=== PATIENT | female | born 1950 ===

== ENCOUNTER 2018-04-12 18:40 | Inpatient (IN) | payer MEDICARE, OTHER ==
[2018-04-12 19:15] LABS: BASO % 0.3 % (0.0-2.0); EOS % 0.1 % (0.0-4.0); HEMOGLOBIN 12.8 g/dL (11.0-16.0); LYMPH # 0.8 K/uL (1.0-4.3); MEAN CELL VOLUME 75.5 fL (81.0-99.0); MEAN CORPUSCULAR HEMOGLOBIN 26.6 pg (27.0-31.0); MEAN CORPUSCULAR HGB CONC 35.3 g/dL (33.0-37.0); MEAN PLATELET VOLUME 7.4 fL (7.2-11.7); MONO # 2.3 K/uL (0.0-0.8); MONO % 14.4 % (0.0-10.0); NEUT # 12.6 K/uL (1.8-7.0); NEUT % 80.2 % (50.0-75.0); PLATELET COUNT 293 K/uL (130-400); RBC 4.79 Mil/uL (3.80-5.20); WHITE BLOOD COUNT 15.7 K/uL (4.8-10.8)
--- NOTE | 2018-04-12 19:23 | C.PDOC ---
History Of Present Illness 68yo female, comes to ER for evaluation of left shoulder pain after she fell down the stairs last night and then again this morning. Patient states she lives alone and last night, she fell down 4 steps in her house; states she was able to get up after this fall and went to bed. She then woke up and went to the bathroom, and sat on the floor and was unable to get up. Patient states while attempting to get herself to go downstairs to the main section of her house this morning, she fell on the stairs again and injured her left shoulder. She states after this fall, she was unable to get up. Shewas found on the floor when the neighbors called the police. Patient now complains of pain and swelling to her left shoulder with ecchymosis. She denies any head injury, loss of consciousness, vomiting, and offers no additional complaints. - HPI Time Seen by Provider: 04/12/18 18:47 Chief Complaint (Nursing): Trauma History Per: Patient History/Exam Limitations: no limitations Onset/Duration Of Symptoms: Hrs Location Of Injury: Left: Shoulder Additional History Per: Patient Past Medical History Reviewed: Historical Data, Nursing Documentation, Vital Signs Vital Signs: Last Vital Signs Temp 98.8 F 04/12/18 20:04 Pulse 87 04/12/18 20:04 Resp 20 04/12/18 20:04 BP 113/76 04/12/18 20:04 Pulse Ox 97 04/12/18 21:02 - Medical History PMH: Gall Bladder Disease, HTN Surgical History: No Surg Hx Family History: States: No Known Family Hx - Social History Hx Alcohol Use: No Hx Substance Use: No - Immunization History Hx Tetanus Toxoid Vaccination: No Hx Influenza Vaccination: No Hx Pneumococcal Vaccination: No Review Of Systems Constitutional: Negative for: Fever, Chills Gastrointestinal: Negative for: Vomiting Musculoskeletal: Positive for: Shoulder Pain (left shoulder pain and swelling) Neurological: Negative for: Other (head injury) Physical Exam - Physical Exam Appears: Non-toxic Skin: Warm, Dry Head: Atraumatic, Normacephalic Eye(s): bilateral: Normal Inspection Neck: Supple Chest: Symmetrical Cardiovascular: Rhythm Regular Respiratory: Normal Breath Sounds Extremity: No Normal ROM (+ patient unable to move left arm due to pain), Tenderness (tenderness, swelling and ecchymosis to left shoulder.) Neurological/Psych: Oriented x3, Normal Speech, Normal Cognition, Normal Sensation ED Course And Treatment - Laboratory Results Result Diagrams: 04/12/18 19:10 04/12/18 19:10 Lab Interpretation: Abnormal (WBC 15.7 with left shift, Na 111, Cl 73, BUN 36, K + 3.3, lelvatedLFTs with Bili 3.7) ECG: Interpreted By Me ECG Rhythm: Sinus Rhythm (with LVH), ST/T Changes (with inverted T in III and flat in AVF, mild slurring of ST segments) O2 Sat by Pulse Oximetry: 97 (RA) Pulse Ox Interpretation: Normal - Other Rad Left shoulder X-Ray: Interpreted by Me Interpretation: displacedfracture of humeral head - CT Scan/US CT head Other Rad Studies (CT/US): Read By Radiologist, Radiology Report Reviewed CT/US Interpretation: EXAM: CT Head Without Intravenous Contrast. CLINICAL HISTORY: 68 years old, female; Condition or disease; Headache; Headache not. specified; Patient HX: R/O bleed. TECHNIQUE: Axial computed tomography images of the head/brain without intravenous contrast. All CT scans at this facility use at least one of these dose optimization techniques: automated. exposure control; mA and/or kV adjustment per patient size (includes targeted exams where dose is. matched to clinical indication); or iterative reconstruction. Coronal and sagittal reformatted images. were created and reviewed. COMPARISON : No relevant prior studies available. FINDINGS: Brain: Cerebral and cerebellar atrophy. Small vessel ischemic/degenerative changes. Lacunar infarcts in the right posterior centrum semiovale. No hemorrhage. Ventricles: Unremarkable. No ventriculomegaly. Bones/joints: Unremarkable. No acute fracture. Soft tissues: Unremarkable. Vasculature: Intracranial arterial calcifications. Sinuses: Unremarkable as visualized. No acute sinusitis. Mastoid air cells: Unremarkable as visualized. No mastoid effusion. IMPRESSION : 1. Cerebral and cerebellar atrophy. 2. Small vessel ischemic/degenerative changes. Thank you for allowing us to participate in the care of your patient. Dictated and Authenticated by: Ivan Villarreal MD. 04/12/2018 9:50 PM Eastern Time ([place] & [place]) Progress Note: Labs, UA, CT Head w/o contrast and XR left shoulder ordered. Reevaluation Time: 19:59 Reassessment Condition: Unchanged - Physician Consult Information Time Consulting Physician Contacted: 19:59 Physician Contacted: Ammy Oneal Outcome Of Conversation: Patient to be admitted for severe hyponatremia with fall and resulting humerus fracture. Disposition - Disposition Disposition: HOSPITALIZED Disposition Time: 20:00 Condition: GUARDED - POA Present On Arrival: Falls Or Trauma - Clinical Impression Clinical Impression: Acute hyponatremia, Humerus head fracture - Scribe Statement The provider has reviewed the documentation as recorded by the Sage Maynard Provider Attestation: All medical record entries made by the Sage were at my direction and personally dictated by me. I have reviewed the chart and agree that the record accurately reflects my personal performance of the history, physical exam, medical decision making, and the department course for this patient. I have also personally directed, reviewed, and agree with the discharge instructions and disposition.
[2018-04-12 19:36] LABS: INR 1.2; PROTHROMBIN TIME 12.7 SECONDS (9.7-12.2)
[2018-04-12 19:46] LABS: ALB/GLOB RATIO 1.2 (1.0-2.1); ALBUMIN 4.7 g/dL (3.5-5.0); CALCIUM 9.5 mg/dl (8.6-10.4)
[2018-04-12] MEDS ORDERED: Sodium Chloride 0.9% 1,000 ML IV ONE (19:49)
[2018-04-12 20:21] LABS: BANDS 2 % (0-2); LYMPHOCYTE 10 % (20-40); MONOCYTE 13 % (0-10); NEUTROPHIL 75 % (50-75); PLATELET ESTIMATE NORMAL (NORMAL); TOTAL CELLS COUNTED 100
[2018-04-12] MEDS ORDERED: Sodium Chloride 0.9% 1,000 ML IV SCH ×2 (21:00→21:15)
[2018-04-13] MEDS ORDERED: Sodium Chloride 0.9% 1,000 ML IV SCH (07:45)
--- NOTE | 2018-04-13 08:19 | RAD ---
Date of service: 04/12/2018 PROCEDURE: CHEST RADIOGRAPH, 1 VIEW HISTORY: r/o infiltrate COMPARISON: None available. FINDINGS: LUNGS: The lungs are clear. No focal consolidation. There is linear atelectasis/ scarring in the right mid lung. PLEURA: No pneumothorax or pleural fluid seen. CARDIOVASCULAR: Normal. OSSEOUS STRUCTURES: No significant abnormalities. VISUALIZED UPPER ABDOMEN: Normal. OTHER FINDINGS: None. IMPRESSION: No active pulmonary disease.
--- NOTE | 2018-04-13 08:35 | RAD ---
Date of service: 04/12/2018 PROCEDURE: Radiographs of the Left Shoulder HISTORY: R/O FX /DISLOCATION POST FALL YESTERDAY COMPARISON: No prior. FINDINGS: BONES: Humeral probable surgical neck level fracture with a lateral and inferior displacement relative to to the glenoid fossa and posterior displacement an over riding relative to the proximal humerus. Additional comminuted fracture fragments of the humeral head also suggested. JOINTS: acromioclavicular joints preserved. Humeral head laterally and apparently posterior displaced/dislocated from the glenoid fossa taken surface. Humeral head posterior the inferior to the unopposed full of the proximal humerus. SOFT TISSUES: Regional soft tissue swelling inferred OTHER FINDINGS: None. IMPRESSION: Proximal humeral fracture with dislocation -as detailed above. Consider CT of the left shoulder for fracture fragment mapping and joint -osseous alignment assessment
[2018-04-13 08:40] LABS: BASO % 0.1 % (0.0-2.0); EOS % 0.2 % (0.0-4.0); LYMPH # 1.1 K/uL (1.0-4.3); WHITE BLOOD COUNT 11.9 K/uL (4.8-10.8)
[2018-04-13 08:46] LABS: LYMPH % 9.6 % (20.0-40.0); MEAN CELL VOLUME 75.3 fL (81.0-99.0); MEAN CORPUSCULAR HGB CONC 35.8 g/dL (33.0-37.0); MEAN PLATELET VOLUME 7.9 fL (7.2-11.7); MONO # 1.8 K/uL (0.0-0.8); MONO % 15.4 % (0.0-10.0); NEUT # 8.9 K/uL (1.8-7.0); NEUT % 74.7 % (50.0-75.0); NRBC % 0.1 % (0.0-2.0); PLATELET COUNT 247 K/uL (130-400); RBC 3.63 Mil/uL (3.80-5.20); RED CELL DISTRIBUTION WIDTH 13.1 % (11.5-14.5)
[2018-04-13 08:52] LABS: HEMOGLOBIN 9.8 g/dL (11.0-16.0)
[2018-04-13 08:58] LABS: ALB/GLOB RATIO 1.1 (1.0-2.1); ALBUMIN 3.1 g/dL (3.5-5.0); ALT/SGPT 55 U/L (9-52); AST/SGOT 114 U/L (14-36); BLOOD UREA NITROGEN 25 mg/dL (7-17); CALCIUM 7.9 mg/dl (8.6-10.4); GFR AFRICAN-AMERICAN > 60; GFR NON-AFRICAN AMERICAN > 60
--- NOTE | 2018-04-13 09:02 | CP.PCM.CON ---
History of Present Illness - History of Present Illness History of Present Illness: Orthopedic consultation Dr. Georges 68F complains of left shoulder pain after fall down 4 steps at her residence. She says she was unable to get up after the fall. Denies CP/SOB/dizziness/ numbness/tingling/n/v. She saysshe always has problems with her gallbladder and can not eat fatty foods. She denies pain in other extremities. RHD. Denies dizziness/denies LOC. No prior shoulder injury. Review of Systems - Review of Systems All systems: reviewed and no additional remarkable complaints except - Constitutional Additional comments: no fever/chills - Cardiovascular Cardiovascular: As Per HPI - Respiratory Respiratory: As Per HPI - Musculoskeletal Musculoskeletal: As Per HPI - Integumentary Integumentary: As Per HPI Additional comments: bruising - Neurological Neurological: As Per HPI - Hematologic/Lymphatic Hematologic: absent: As Per HPI, Easy Bleeding, Easy Bruising, Lymphadenopathy, Other Past Patient History - Past Medical History & Family History Past Medical History?: Yes Past Family History: Reviewed and not pertinent - Past Social History Smoking Status: Never Smoked - CARDIAC Hx Cardiac Disorders: Yes Hx Hypertension: Yes - PULMONARY Hx Respiratory Disorders: No - NEUROLOGICAL Hx Neurological Disorder: No - HEENT Hx HEENT Problems: Yes Hx Glaucoma: Yes - RENAL Hx Chronic Kidney Disease: No - ENDOCRINE/METABOLIC Hx Endocrine Disorders: No - HEMATOLOGICAL/ONCOLOGICAL Hx Blood Disorders: No - INTEGUMENTARY Hx Dermatological Problems: No - MUSCULOSKELETAL/RHEUMATOLOGICAL Hx Musculoskeletal Disorders: Yes Hx Falls: Yes Hx Unsteady Gait: Yes - GASTROINTESTINAL Hx Gastrointestinal Disorders: Yes Hx Gall Bladder Disease: Yes - GENITOURINARY/GYNECOLOGICAL Hx Genitourinary Disorders: No - PSYCHIATRIC Hx Psychophysiologic Disorder: No Hx Substance Use: No - SURGICAL HISTORY Hx Surgeries: Yes Other/Comment: Fibroids removed by Dr Cass Arias - ANESTHESIA Hx Anesthesia: Yes Hx Anesthesia Reactions: No Hx Malignant Hyperthermia: No Has any member of the family had a problem w/ anesthesia?: No Meds Allergies/Adverse Reactions: Allergies Allergy/AdvReac Type Severity Reaction Status Date / Time No Known Allergies Allergy Unverified 04/12/18 18:51 - Medications Medications: Current Medications Potassium Chloride 20 meq/ (Sodium Chloride) 1,010 mls @ 100 mls/hr IV .Q10H6M [facility] Last Admin: 04/13/18 00:00 Dose: 100 mls/hr Potassium Chloride 20 meq/ (Sodium Chloride) 1,010 mls @ 100 mls/hr IV .Q10H6M KATHY Sodium Chloride (Sodium Chloride 0.9%) 1,000 mls @ 70 mls/hr IV .[id number] KATHY Last Admin: 04/13/18 08:29 Dose: 70 mls/hr Physical Exam - Constitutional Appears: Well, No Acute Distress - Neck Exam Neck exam: Positive for: Full Rom, Normal Inspection - Respiratory Exam Respiratory Exam: NORMAL BREATHING PATTERN - Cardiovascular Exam Additional comments: +radial pulse LUE - Expanded Upper Extremities Exam Left Upper Arm exam: ecchymosis, swelling, tenderness Elbow exam: full ROM, swelling (non tender, swelling from shoulder) Forearm Wrist exam: full ROM, normal inspection Neuro motor exam: finger 2-5 abduction intact, thumb abduction, thumb IP flexion intact, thumb opposition intact, wrist extension intact Neurosensory exam: median nerve intact, radial nerve intact, ulnar nerve intact Vascular exam: radial pulse - Neurological Exam Neurological exam: Alert, Oriented x3 - Psychiatric Exam Psychiatric exam: Normal Affect, Normal Mood - Skin Skin Exam: Dry, Intact (sig ecchymosis), Warm Results - Vital Signs Recent Vital Signs: Last Vital Signs Temp 97.9 F 04/12/18 23:30 Pulse 76 04/13/18 05:24 Resp 20 04/12/18 23:30 BP 102/65 04/12/18 23:30 Pulse Ox 98 04/12/18 23:30 - Labs Result Diagrams: 04/13/18 08:24 04/13/18 08:24 Labs: Laboratory Results - last 24 hr 04/12/18 04/12/18 04/12/18 19:10 19:10 19:10 WBC 15.7 H RBC 4.79 Hgb 12.8 Hct 36.1 MCV 75.5 L MCH 26.6 L MCHC 35.3 RDW 13.0 Plt Count 293 MPV 7.4 Neut % (Auto) 80.2 H Lymph % (Auto) 5.0 L [place] % (Auto) 14.4 H Eos % (Auto) 0.1 Baso % (Auto) 0.3 Neut # (Auto) 12.6 H Lymph # (Auto) 0.8 L [place] # (Auto) 2.3 H Eos # (Auto) 0.0 Baso # (Auto) 0.0 Neutrophils % (Manual) 75 Band Neutrophils % 2 Lymphocytes % (Manual) 10 L Monocytes % (Manual) 13 H Platelet Estimate Normal PT 12.7 H INR 1.2 Sodium 111 L* Potassium 3.3 L Chloride 73 L Carbon Dioxide 24 Anion Gap 18 BUN 36 H Creatinine 1.1 Est GFR ( Amer) 59 Est GFR (Non-Af Amer) 49 Random Glucose 138 H Serum Osmolality Calcium 9.5 Total Bilirubin 3.7 H AST 221 H ALT 82 H Alkaline Phosphatase 151 H Total Protein 8.5 H Albumin 4.7 Globulin 3.8 Albumin/Globulin Ratio 1.2 04/13/18 04/13/18 04/13/18 08:24 08:24 08:24 WBC 11.9 H RBC 3.63 L Hgb 9.8 L D Hct 27.3 L MCV 75.3 L MCH 27.0 MCHC 35.8 RDW 13.1 Plt Count 247 MPV 7.9 Neut % (Auto) 74.7 Lymph % (Auto) 9.6 L [place] % (Auto) 15.4 H Eos % (Auto) 0.2 Baso % (Auto) 0.1 Neut # (Auto) 8.9 H Lymph # (Auto) 1.1 [place] # (Auto) 1.8 H Eos # (Auto) 0.0 Baso # (Auto) 0.0 Neutrophils % (Manual) Band Neutrophils % Lymphocytes % (Manual) Monocytes % (Manual) Platelet Estimate PT INR Sodium 113 L* Potassium 3.4 L Chloride 85 L Carbon Dioxide 20 L Anion Gap 12 BUN 25 H Creatinine 0.7 Est GFR ( Amer) > 60 Est GFR (Non-Af Amer) > 60 Random Glucose 118 H Serum Osmolality 245 L Calcium 7.9 L Total Bilirubin 2.0 H AST 114 H D ALT 55 H D Alkaline Phosphatase 106 Total Protein 5.9 L Albumin 3.1 L D Globulin 2.7 Albumin/Globulin Ratio 1.1 Assessment & Plan (1) Closed fracture of left proximal humerus Assessment and Plan: neck fragment 100% displaced CT left shoulder sling ice around the clock plan for hemiarthroplasty when medically optimized and swelling improved, will plan for next Tuesday for OR 3pm check vitamin D level d/w Dr. Georges, agrees with above Status: Acute
[2018-04-13 09:36] LABS: BANDS 2 % (0-2); LYMPHOCYTE 6 % (20-40); MONOCYTE 13 % (0-10); NEUTROPHIL 79 % (50-75); TOTAL CELLS COUNTED 100
[2018-04-13 09:37] LABS: HYPOCHROMIC SLIGHT; PLATELET ESTIMATE NORMAL (NORMAL)
[2018-04-13 09:38] LABS: POLYCHROMIC SLIGHT
--- NOTE | 2018-04-13 10:04 | CT ---
Date of service: 04/12/2018 PROCEDURE: CT HEAD WITHOUT CONTRAST. HISTORY: R/O Bleed COMPARISON: None available. TECHNIQUE: Axial computed tomography images were obtained through the head/brain without intravenous contrast. Radiation dose: Total exam DLP = 638.70 mGy-cm. This CT exam was performed using one or more of the following dose reduction techniques: Automated exposure control, adjustment of the mA and/or kV according to patient size, and/or use of iterative reconstruction technique. FINDINGS: HEMORRHAGE: No intracranial hemorrhage. BRAIN: There are mild chronic microangiopathic changes. There is an old infarction in the right parietal subcortical white matter and periatrial white matter. There is no mass, mass effect or abnormal extra-axial fluid collection. VENTRICLES: There is mild age-related global parenchymal volume loss and proportionate enlargement of the ventricles and cortical sulci. CALVARIUM: The skull base and calvarium are normal. PARANASAL SINUSES: Predominantly clear. MASTOID AIR CELLS: Predominantly clear. OTHER FINDINGS: None. IMPRESSION: No acute intracranial abnormality. 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 Mild chronic microangiopathic changes and mild age-related global parenchymal volume loss. A preliminary report was provided by [employer].
--- NOTE | 2018-04-13 10:22 | US ---
Date of service: 04/12/2018 HISTORY: high liver enzymes COMPARISON: None. TECHNIQUE: Grayscale imaging was performed. FINDINGS: LIVER: Measures 12.9 cm. There is diffuse increased echogenicity of the liver parenchyma. No mass. No intrahepatic bile duct dilatation. GALLBLADDER: There are no gallstones, wall thickening or pericholecystic fluid. The sonographic Keating's sign is negative. COMMON BILE DUCT: Measures 8.0 mm. No stones. Mild dilatation. PANCREAS: Unremarkable as visualized. No mass. No ductal dilatation. RIGHT KIDNEY: Measures 9.8cm. Normal echogenicity. No calculus, mass, or hydronephrosis. LEFT KIDNEY: Measures 10.0cm. Normal echogenicity. No mass, or hydronephrosis. There is a 5 mm calcification in the lower pole. There is a 3.8 x 4.1 x 3.8 cm simple cyst in the upper pole and 1.5 x 1.4 x 1.6 cm simple cyst in the interpolar region. SPLEEN: Normal in size and contour. No mass. AORTA: No aneurysmal dilatation. IVC: Unremarkable. OTHER FINDINGS: None. IMPRESSION: Diffuse increased echogenicity in the liver may reflect hepatic steatosis however parenchymal infectious/ inflammatory etiologies cannot be entirely excluded. Clinical and laboratory correlation is advised. No cholelithiasis. Mild dilatation of the common bile duct without evidence for choledocholithiasis. 5 mm calcification in the lower pole of the left kidney which may represent a nonobstructing stone. Simple cysts in the left kidney, the larger in the upper pole measures 4.1 cm.
--- NOTE | 2018-04-13 11:28 | CARD ---
APPROVED REPORT Date of service: 04/12/2018 EKG Measurement Heart [id number] CT [id number] <Conclusion> Normal sinus rhythm Possible Left atrial enlargement Left ventricular hypertrophy with repolarization abnormality Abnormal ECG
[2018-04-13 13:49] LABS: SQUAMOUS EPITHIAL 3 /hpf (0-5); URINE BACTERIA RARE (<OCC); URINE BILIRUBIN NEGATIVE (NEGATIVE); URINE BLOOD NEGATIVE (NEGATIVE); URINE CLARITY Hazy (Clear); URINE COLOR Yellow (YELLOW); URINE GLUCOSE (UA) 2+ mg/dL (Normal); URINE LEUKOCYTE ESTERASE 1+ Leu/uL (Negative); URINE PROTEIN 1+ mg/dL (NEGATIVE)
[2018-04-13 14:13] LABS: OSMOLALITY,URINE 555 mosm/kg (300-1000)
--- NOTE | 2018-04-13 14:15 | CT ---
Date of service: 04/13/2018 PROCEDURE: CT scan of the left shoulder without contrast HISTORY: left proximal humerus fracture COMPARISON: Plain radiographs from 04/12/2018. TECHNIQUE: Contiguous axial images of the left shoulder were obtained. Coronal and sagittal reformats were generated. This CT exam was performed using one or more of the following dose reduction techniques: Automated exposure control, adjustment of the mA and/or kV according to patient size, and/or use of iterative reconstruction technique. FINDINGS: BONES: There is an acute comminuted displaced fracture in the surgical neck of the humerus with posterior, lateral and inferior displacement of the humeral head overriding the proximal metaphysis of the humerus. There is resultant posterior inferior subluxation of the glenohumeral joint. The acromioclavicular joint is normal. There is diffuse bone demineralization. There is diffuse subcutaneous edema in the periarticular soft tissues. There is also intramuscular edema. IMPRESSION: Acute comminuted displaced fracture in the surgical neck of the humerus with posterior, lateral and inferior displacement of the humeral head overriding the proximal metaphysis of the humerus. Posterior inferior subluxation of the glenohumeral joint.
[2018-04-13 14:16] LABS: URIC ACID 4.2 mg/dL (2.2-7.5)
--- NOTE | 2018-04-13 14:54 | CP.PCM.HP ---
History of Present Illness - History of Present Illness History of Present Illness: This is a 68 y/o female hypertensive who was brought to the ER after a fall. Patient claims that she fell down on her L shoulder while going up the stairs at home. She denies any history of dizziness, lightheadedness, palpitations or syncope. She then got up and went upstairs and fell asleep. She woke up in the middle of the night seemingly disoriented and went to the bathroom. She subsequently woke up the next morning on the bathroom floor after apparently spending the rest of the night there. She tried to get up and felt so weak so she crawled out to go down the stairs and rolled down the stairs again. She again reports that she crawled to the downstairs bathroom but was too weak to go to the toilet and urinated while on the floor. She denies any seizure or loss of consciousness. She was found the next day on the floor by a neighbor who called the mason apprentice because they did not see her for 2 days. She was subsequently brought to the ER and found to be dehydrated with severe electrolyte imbalance with serum Na of 111 with fracture at the surgical neck of the L humerus and hence she is now admitted for further management. She was last seen in the office about 6 weeks ago and at that time, she claims that she has been been drinking a lot of water as part of the water therapy that someone advised her to do. She was told to stop doing that and explained possible consequences. She claims that she did stop and has really been asymptomatic until the day of the fall. She denies any abdominal pain, nausea or vomiting and has described herself as feeling normal until the fall. Present on Admission - Present on Admission Any Indicators Present on Admission: No History of DVT/PE: No History of Uncontrolled Diabetes: No Review of Systems - Review of Systems Systems not reviewed;Unavailable: Respiratory Distress - Constitutional Constitutional: Weight Loss, Weakness - EENT Eyes: As Per HPI - Cardiovascular Cardiovascular: As Per HPI - Respiratory Respiratory: Cough - Musculoskeletal Musculoskeletal: Arthralgias, Myalgias Past Patient History - Past Medical History & Family History Past Medical History?: Yes Past Family History: Reviewed and not pertinent - Past Social History Smoking Status: Never Smoked Chewing Tobacco Use: No Cigar Use: No Alcohol: None Drugs: Denies Home Situation {Lives}: Alone - CARDIAC Hx Cardiac Disorders: No Hx Hypertension: Yes - PULMONARY Hx Respiratory Disorders: No - NEUROLOGICAL Hx Neurological Disorder: No - HEENT Hx HEENT Problems: Yes Hx Glaucoma: Yes - RENAL Hx Chronic Kidney Disease: No - ENDOCRINE/METABOLIC Hx Endocrine Disorders: No - HEMATOLOGICAL/ONCOLOGICAL Hx Blood Disorders: No - INTEGUMENTARY Hx Dermatological Problems: No - MUSCULOSKELETAL/RHEUMATOLOGICAL Hx Musculoskeletal Disorders: Yes Hx Arthritis: Yes Hx Falls: Yes Hx Unsteady Gait: Yes - GASTROINTESTINAL Hx Gastrointestinal Disorders: Yes Hx Gall Bladder Disease: Yes - GENITOURINARY/GYNECOLOGICAL Hx Genitourinary Disorders: No - PSYCHIATRIC Hx Psychophysiologic Disorder: No Hx Substance Use: No - SURGICAL HISTORY Hx Surgeries: Yes Other/Comment: Fibroids removed by Dr Cass Arias - ANESTHESIA Hx Anesthesia: Yes Hx Anesthesia Reactions: No Hx Malignant Hyperthermia: No Has any member of the family had a problem w/ anesthesia?: No Meds Allergies/Adverse Reactions: Allergies Allergy/AdvReac Type Severity Reaction Status Date / Time No Known Allergies Allergy Unverified 04/12/18 18:51 Physical Exam - Constitutional Appears: No Acute Distress - Head Exam Head Exam: NORMAL INSPECTION - Eye Exam Eye Exam: EOMI, Normal appearance - ENT Exam ENT Exam: Mucous Membranes Moist, Normal Exam - Neck Exam Neck exam: Positive for: Normal Inspection - Respiratory Exam Respiratory Exam: Clear to Auscultation Bilateral, NORMAL BREATHING PATTERN - Cardiovascular Exam Cardiovascular Exam: REGULAR RHYTHM, +S1, +S2 - GI/Abdominal Exam GI & Abdominal Exam: Normal Bowel Sounds, Soft - Extremities Exam Extremities exam: Positive for: joint swelling, pedal pulses present Additional comments: L shoulder markedly swollen and tender to pressure and movement with large hematoma extending to the upper arm. - Neurological Exam Neurological exam: Alert, Oriented x3 - Psychiatric Exam Psychiatric exam: Normal Affect, Normal Mood - Skin Skin Exam: Dry, Normal Color, Warm Results - Vital Signs Recent Vital Signs: Last Vital Signs Temp 98.3 F 04/13/18 08:59 Pulse 76 04/13/18 08:59 Resp 20 04/13/18 08:59 BP 95/62 L 04/13/18 08:59 Pulse Ox 98 04/13/18 08:59 - Labs Result Diagrams: 04/13/18 08:24 04/13/18 13:57 Labs: Laboratory Results - last 24 hr 04/12/18 04/12/1804/12/18 19:10 19:10 19:10 WBC 15.7 H RBC 4.79 Hgb 12.8 Hct 36.1 MCV 75.5 L MCH 26.6 L MCHC 35.3 RDW 13.0 Plt Count 293 MPV 7.4 Neut % (Auto) 80.2 H Lymph % (Auto) 5.0 L [place] % (Auto) 14.4 H Eos % (Auto) 0.1 Baso % (Auto) 0.3 Neut # (Auto) 12.6 H Lymph # (Auto) 0.8 L [place] # (Auto) 2.3 H Eos # (Auto) 0.0 Baso # (Auto) 0.0 Neutrophils % (Manual) 75 Band Neutrophils % 2 Lymphocytes % (Manual) 10 L Monocytes % (Manual) 13 H Platelet Estimate Normal Polychromasia Hypochromasia (manual) PT 12.7 H INR 1.2 Sodium 111 L* Potassium 3.3 L Chloride 73 L Carbon Dioxide 24 Anion Gap 18 BUN 36 H Creatinine 1.1 Est GFR ( Amer) 59 Est GFR (Non-Af Amer) 49 Random Glucose 138 H Serum Osmolality Uric Acid Calcium 9.5 Total Bilirubin 3.7 H AST 221 H ALT 82 H Alkaline Phosphatase 151 H Total Protein 8.5 H Albumin 4.7 Globulin 3.8 Albumin/Globulin Ratio 1.2 TSH 3rd Generation Cortisol AM Sample Urine Color Urine Clarity Urine pH Ur Specific [place] Urine Protein Urine Glucose (UA) Urine Ketones Urine Blood Urine Nitrate Urine Bilirubin Urine Urobilinogen Ur Leukocyte Esterase Urine WBC (Auto) Urine RBC (Auto) Ur Squamous Epith Cells Urine Bacteria Urine Osmolality Ur Random Sodium 04/13/18 04/13/18 04/13/18 08:24 08:24 08:24 WBC 11.9 H RBC 3.63 L Hgb 9.8 L D Hct 27.3 L MCV 75.3 L MCH 27.0 MCHC 35.8 RDW 13.1 Plt Count 247 MPV 7.9 Neut % (Auto) 74.7 Lymph % (Auto) 9.6 L [place] % (Auto) 15.4 H Eos % (Auto) 0.2 Baso % (Auto) 0.1 Neut # (Auto) 8.9 H Lymph # (Auto) 1.1 [place] # (Auto) 1.8 H Eos # (Auto) 0.0 Baso # (Auto) 0.0 Neutrophils % (Manual) 79 H Band Neutrophils % 2 Lymphocytes % (Manual) 6 L Monocytes % (Manual) 13 H Platelet Estimate Normal Polychromasia Slight Hypochromasia (manual) Slight PT INR Sodium 113 L* Potassium 3.4 L Chloride 85 L Carbon Dioxide 20 L Anion Gap 12 BUN 25 H Creatinine 0.7 Est GFR ( Amer) > 60 Est GFR (Non-Af Amer) > 60 Random Glucose 118 H Serum Osmolality 245 L Uric Acid Calcium 7.9 L Total Bilirubin 2.0 H AST 114 H D ALT 55 H D Alkaline Phosphatase 106 Total Protein 5.9 L Albumin 3.1 L D Globulin 2.7 Albumin/Globulin Ratio 1.1 TSH 3rd Generation Cortisol AM Sample Urine Color Urine Clarity Urine pH Ur Specific [place] Urine Protein Urine Glucose (UA) Urine Ketones Urine Blood Urine Nitrate Urine Bilirubin Urine Urobilinogen Ur Leukocyte Esterase Urine WBC (Auto) Urine RBC (Auto) Ur Squamous Epith Cells Urine Bacteria Urine Osmolality Ur Random Sodium 04/13/18 04/13/18 04/13/18 08:24 08:24 13:36 WBC RBC Hgb Hct MCV MCH MCHC RDW Plt Count MPV Neut % (Auto) Lymph % (Auto) [place] % (Auto) Eos % (Auto) Baso % (Auto) Neut # (Auto) Lymph # (Auto) [place] # (Auto) Eos # (Auto) Baso # (Auto) Neutrophils % (Manual) Band Neutrophils % Lymphocytes % (Manual) Monocytes % (Manual) Platelet Estimate Polychromasia Hypochromasia (manual) PT INR Sodium Potassium Chloride Carbon Dioxide Anion Gap BUN Creatinine Est GFR ( Amer) Est GFR (Non-Af Amer) Random Glucose Serum Osmolality Uric Acid Calcium Total Bilirubin AST ALT Alkaline Phosphatase Total Protein Albumin Globulin Albumin/Globulin Ratio TSH 3rd Generation 1.23 Cortisol AM Sample 21.9 Urine Color Urine Clarity Urine pH Ur Specific [place] Urine Protein Urine Glucose (UA) Urine Ketones Urine Blood Urine Nitrate Urine Bilirubin Urine Urobilinogen Ur Leukocyte Esterase Urine WBC (Auto) Urine RBC (Auto) Ur Squamous Epith Cells Urine Bacteria Urine Osmolality 555 Ur Random Sodium 6 04/13/18 04/13/18 13:36 13:57 WBC RBC Hgb Hct MCV MCH MCHC RDW Plt Count MPV Neut % (Auto) Lymph % (Auto) [place] % (Auto) Eos % (Auto) Baso % (Auto) Neut # (Auto) Lymph # (Auto) [place] # (Auto) Eos # (Auto) Baso # (Auto) Neutrophils % (Manual) Band Neutrophils % Lymphocytes % (Manual) Monocytes % (Manual) Platelet Estimate Polychromasia Hypochromasia (manual) PT INR Sodium Potassium 3.3 L Chloride Carbon Dioxide Anion Gap BUN Creatinine Est GFR ( Amer) Est GFR (Non-Af Amer) Random Glucose Serum Osmolality Uric Acid 4.2 Calcium Total Bilirubin AST ALT Alkaline Phosphatase Total Protein Albumin Globulin Albumin/Globulin Ratio TSH 3rd Generation Cortisol AM Sample Urine Color Yellow Urine Clarity Hazy Urine pH 6.0 Ur Specific [place] 1.017 Urine Protein 1+ H Urine Glucose (UA) 2+ H Urine Ketones Trace Urine Blood Negative Urine Nitrate Negative Urine Bilirubin Negative Urine Urobilinogen 2.0 H Ur Leukocyte Esterase 1+ H Urine WBC (Auto) 30 H Urine RBC (Auto) 1 Ur Squamous Epith Cells 3 Urine Bacteria Rare Urine Osmolality Ur Random Sodium Assessment & Plan (1) Hyponatremia Assessment and Plan: Serum Na 111 on admission. acute vs chronic. Currently on NS infusion and monitoring serum Na levels. R/O SIADH and other causes of SIADH, abnormalities in the lungs or brain. Nephrology consultation requested. Status: Acute (2) Closed fracture of left proximal humerus Assessment and Plan: Orthopedic consultation requested. Tentatively scheduled for surgery on Tuesday. Status: Acute (3) Acute prerenal azotemia Assessment and Plan: Patient has not been able to eat over the past 24-36 hours prior to admission. Currently on NS infusion and diet started Status: Acute (4) Hypertension Assessment and Plan: controlled. Status: Acute Decision To Admit - Pt Status Changed To: Hospital Disposition Of: Inpatient - Admit Certification Admit to Inpatient:: After my assessment, the patient will require hospitalization for at least two midnights. This is because of the severity of symptoms shown, intensity of services needed, and/or the medical risk in this patient being treated as an outpatient. - InPatient: Physician Admission Certification:: After my assessment, the patient will require hospitalization for at least two midnights. This is because of the severity of symptoms shown, intensity of services needed, and/or the medical risk in this patient being treated as an outpatient. - . Bed Request Type: Telemetry Admitting Physician: Ammy Oneal
--- NOTE | 2018-04-13 15:32 | CP.PCM.CON ---
History of Present Illness - History of Present Illness History of Present Illness: pt is seen and examined, full consult is dictated #[id number] 1. hyponatremia sec to hypotonic hypovolemic hyponatremia, doubu siadh 2. hypotension 3. s/p fall with left shoulder injury and fx left humerus 4. hypokalemia agree with ivf ns with 20 meq kcl at 70 ml/hr bmp q 6 hrs check urine lytes, osm, uric acid, tsh, cortisol level, bmp at 6 pm Past Patient History - Past Medical History & Family History Past Medical History?: Yes Past Family History: Reviewed and not pertinent - Past Social History Smoking Status: Never Smoked Chewing Tobacco Use: No Cigar Use: No Alcohol: None Drugs: Denies Home Situation {Lives}: Alone - CARDIAC Hx Cardiac Disorders: No Hx Hypertension: Yes - PULMONARY Hx Respiratory Disorders: No - NEUROLOGICAL Hx Neurological Disorder: No - HEENT Hx HEENT Problems: Yes Hx Glaucoma: Yes - RENAL Hx Chronic Kidney Disease: No - ENDOCRINE/METABOLIC Hx Endocrine Disorders: No - HEMATOLOGICAL/ONCOLOGICAL Hx Blood Disorders: No - INTEGUMENTARY Hx Dermatological Problems: No - MUSCULOSKELETAL/RHEUMATOLOGICAL Hx Musculoskeletal Disorders: Yes Hx Arthritis: Yes Hx Falls: Yes Hx Unsteady Gait: Yes - GASTROINTESTINAL Hx Gastrointestinal Disorders: Yes Hx Gall Bladder Disease: Yes - GENITOURINARY/GYNECOLOGICAL Hx Genitourinary Disorders: No - PSYCHIATRIC Hx Psychophysiologic Disorder: No Hx Substance Use: No - SURGICAL HISTORY Hx Surgeries: Yes Other/Comment: Fibroids removed by Dr Cass Arias - ANESTHESIA Hx Anesthesia: Yes Hx Anesthesia Reactions: No Hx Malignant Hyperthermia: No Has any member of the family had a problem w/ anesthesia?: No Meds Allergies/Adverse Reactions: Allergies Allergy/AdvReac Type Severity Reaction Status Date / Time No Known Allergies Allergy Unverified 04/12/18 18:51 - Medications Medications: Current Medications Home Med (Dorzolamide 2%/Timolol 0.5% [Cosopt 2%-0.5% Opht]) 1 drop AU BID KATHY Potassium Chloride 20 meq/ (Sodium Chloride) 1,010 mls @ 70 mls/hr IV .[id number] KATHY Last Admin: 04/13/18 12:00 Dose: 70 mls/hr Potassium Chloride (K-Dur 20 Meq Er Tab) 40 meq PO ONCE ONE Stop: 04/13/18 16:01 Results - Vital Signs Recent Vital Signs: Last Vital Signs Temp 98.3 F 04/13/18 08:59 Pulse 76 04/13/18 08:59 Resp 20 04/13/18 08:59 BP 95/62 L 04/13/18 08:59 Pulse Ox 98 04/13/18 08:59 - Labs Result Diagrams: 04/13/18 08:24 04/13/18 19:25 Labs: Laboratory Results - last 24 hr 04/12/18 04/12/18 04/12/18 19:10 19:10 19:10 WBC 15.7 H RBC 4.79 Hgb 12.8 Hct 36.1 MCV 75.5 L MCH 26.6 L MCHC 35.3 RDW 13.0 Plt Count 293 MPV 7.4 Neut % (Auto) 80.2 H Lymph % (Auto) 5.0 L [place] % (Auto) 14.4 H Eos % (Auto) 0.1 Baso % (Auto) 0.3 Neut # (Auto) 12.6 H Lymph # (Auto) 0.8 L [place] # (Auto) 2.3 H Eos # (Auto) 0.0 Baso # (Auto) 0.0 Neutrophils % (Manual) 75 Band Neutrophils % 2 Lymphocytes % (Manual) 10 L Monocytes % (Manual) 13 H Platelet Estimate Normal Polychromasia Hypochromasia (manual) PT 12.7 H INR 1.2 Sodium 111 L* Potassium 3.3 L Chloride 73 L Carbon Dioxide 24 Anion Gap 18 BUN 36 H Creatinine 1.1 Est GFR ( Amer) 59 Est GFR (Non-Af Amer) 49 Random Glucose 138 H Serum Osmolality Uric Acid Calcium 9.5 Total Bilirubin 3.7 H AST 221 H ALT 82 H Alkaline Phosphatase 151 H Total Protein 8.5 H Albumin 4.7 Globulin 3.8 Albumin/Globulin Ratio 1.2 TSH 3rd Generation Cortisol AM Sample Urine Color Urine Clarity Urine pH Ur Specific [place] Urine Protein Urine Glucose (UA) Urine Ketones Urine Blood Urine Nitrate Urine Bilirubin Urine Urobilinogen Ur Leukocyte Esterase Urine WBC (Auto) Urine RBC (Auto) Ur Squamous Epith Cells Urine Bacteria Urine Osmolality Ur Random Sodium Ur Random Potassium Stool Occult Blood 04/13/18 04/13/18 04/13/18 08:24 08:24 08:24 WBC 11.9 H RBC 3.63 L Hgb 9.8 L D Hct 27.3 L MCV 75.3 L MCH 27.0 MCHC 35.8 RDW 13.1 Plt Count 247 MPV 7.9 Neut % (Auto) 74.7 Lymph % (Auto) 9.6 L [place] % (Auto) 15.4 H Eos % (Auto) 0.2 Baso % (Auto) 0.1 Neut # (Auto) 8.9 H Lymph # (Auto) 1.1 [place] # (Auto) 1.8 H Eos # (Auto) 0.0 Baso # (Auto) 0.0 Neutrophils % (Manual) 79 H Band Neutrophils % 2 Lymphocytes % (Manual) 6 L Monocytes % (Manual) 13 H Platelet Estimate Normal Polychromasia Slight Hypochromasia (manual) Slight PT INR Sodium 113 L* Potassium 3.4 L Chloride 85 L Carbon Dioxide 20 L Anion Gap 12 BUN 25 H Creatinine 0.7 Est GFR ( Amer) > 60 Est GFR (Non-Af Amer) > 60 Random Glucose 118 H Serum Osmolality 245 L Uric Acid Calcium 7.9 L Total Bilirubin 2.0 H AST 114 H D ALT 55 H D Alkaline Phosphatase 106 Total Protein 5.9 L Albumin 3.1 L D Globulin 2.7 Albumin/Globulin Ratio 1.1 TSH 3rd Generation Cortisol AM Sample Urine Color Urine Clarity Urine pH Ur Specific [place] Urine Protein Urine Glucose (UA) Urine Ketones Urine Blood Urine Nitrate Urine Bilirubin Urine Urobilinogen Ur Leukocyte Esterase Urine WBC (Auto) Urine RBC (Auto) Ur Squamous Epith Cells Urine Bacteria Urine Osmolality Ur Random Sodium Ur Random Potassium Stool Occult Blood 04/13/18 04/13/18 04/13/18 08:24 08:24 13:30 WBC RBC Hgb Hct MCV MCH MCHC RDW Plt Count MPV Neut % (Auto) Lymph % (Auto) [place] % (Auto) Eos % (Auto) Baso % (Auto) Neut # (Auto) Lymph # (Auto) [place] # (Auto) Eos # (Auto) Baso # (Auto) Neutrophils % (Manual) Band Neutrophils % Lymphocytes % (Manual) Monocytes % (Manual) Platelet Estimate Polychromasia Hypochromasia (manual) PT INR Sodium Potassium Chloride Carbon Dioxide Anion Gap BUN Creatinine Est GFR ( Amer) Est GFR (Non-Af Amer) Random Glucose Serum Osmolality Uric Acid Calcium Total Bilirubin AST ALT Alkaline Phosphatase Total Protein Albumin Globulin Albumin/Globulin Ratio TSH 3rd Generation 1.23 Cortisol AM Sample 21.9 Urine Color Urine Clarity Urine pH Ur Specific [place] Urine Protein Urine Glucose (UA) Urine Ketones Urine Blood Urine Nitrate Urine Bilirubin Urine Urobilinogen Ur Leukocyte Esterase Urine WBC (Auto) Urine RBC (Auto) Ur Squamous Epith Cells Urine Bacteria Urine Osmolality Ur Random Sodium Ur Random Potassium 36.3 Stool Occult Blood 04/13/18 04/13/18 04/13/18 13:36 13:36 13:57 WBC RBC Hgb Hct MCV MCH MCHC RDW Plt Count MPV Neut % (Auto) Lymph % (Auto) [place] % (Auto) Eos % (Auto) Baso % (Auto) Neut # (Auto) Lymph # (Auto) [place] # (Auto) Eos # (Auto) Baso # (Auto) Neutrophils % (Manual) Band Neutrophils % Lymphocytes % (Manual) Monocytes % (Manual) Platelet Estimate Polychromasia Hypochromasia (manual) PT INR Sodium Potassium 3.3 L Chloride Carbon Dioxide Anion Gap BUN Creatinine Est GFR ( Amer) Est GFR (Non-Af Amer) Random Glucose Serum Osmolality Uric Acid 4.2 Calcium Total Bilirubin AST ALT Alkaline Phosphatase Total Protein Albumin Globulin Albumin/Globulin Ratio TSH 3rd Generation Cortisol AM Sample Urine Color Yellow Urine Clarity Hazy Urine pH 6.0 Ur Specific [place] 1.017 Urine Protein 1+ H Urine Glucose (UA) 2+ H Urine Ketones Trace Urine Blood Negative Urine Nitrate Negative Urine Bilirubin Negative Urine Urobilinogen 2.0 H Ur Leukocyte Esterase 1+ H Urine WBC (Auto) 30 H Urine RBC (Auto) 1 Ur Squamous Epith Cells 3 Urine Bacteria Rare Urine Osmolality 555 Ur Random Sodium Cancelled Ur Random Potassium Cancelled Stool Occult Blood 04/13/18 14:34 WBC RBC Hgb Hct MCV MCH MCHC RDW Plt Count MPV Neut % (Auto) Lymph % (Auto) [place] % (Auto) Eos % (Auto) Baso % (Auto) Neut # (Auto) Lymph # (Auto) [place] # (Auto) Eos # (Auto) Baso # (Auto) Neutrophils % (Manual) Band Neutrophils % Lymphocytes % (Manual) Monocytes % (Manual) Platelet Estimate Polychromasia Hypochromasia (manual) PT INR Sodium Potassium Chloride Carbon Dioxide Anion Gap BUN Creatinine Est GFR ( Amer) Est GFR (Non-Af Amer) Random Glucose Serum Osmolality Uric Acid Calcium Total Bilirubin AST ALT Alkaline Phosphatase Total Protein Albumin Globulin Albumin/Globulin Ratio TSH 3rd Generation Cortisol AM Sample Urine Color Urine Clarity Urine pH Ur Specific [place] Urine Protein Urine Glucose (UA) Urine Ketones Urine Blood Urine Nitrate Urine Bilirubin Urine Urobilinogen Ur Leukocyte Esterase Urine WBC (Auto) Urine RBC (Auto) Ur Squamous Epith Cells Urine Bacteria Urine Osmolality Ur Random Sodium Ur Random Potassium Stool Occult Blood Negative
[2018-04-13] MEDS ORDERED: Potassium Chloride 20 mEq ER Tab PO ONE (16:00)
[2018-04-13] MEDS: Naproxen 275 mg Tab PO PRN (17:55)
[2018-04-13] MEDS ORDERED: TIMOLOL OU SCH (18:00)
[2018-04-13] MEDS ORDERED: Dorzolamide 2% Opht Sol 10ml OU SCH (18:00)
[2018-04-13] MEDS ORDERED: DORZOLAMIDE OU SCH (18:00)
[2018-04-13 19:51] LABS: BLOOD UREA NITROGEN 19 mg/dL (7-17); CALCIUM 7.7 mg/dl (8.6-10.4); GFR AFRICAN-AMERICAN > 60; GFR NON-AFRICAN AMERICAN > 60
[2018-04-13] MEDS: Promethazine DM 6.25 mg-15 mg/5 ml Syrup PO PRN (21:31)
[2018-04-13 21:33] LABS: URINE BILIRUBIN NEGATIVE (NEGATIVE); URINE BLOOD NEGATIVE (NEGATIVE); URINE CLARITY Clear (Clear); URINE COLOR Yellow (YELLOW); URINE GLUCOSE (UA) 1+ mg/dL (Normal); URINE HYALINE CAST 0-2 /lpf (0-2); URINE LEUKOCYTE ESTERASE NEG Leu/uL (Negative); URINE PROTEIN NEGATIVE (NEGATIVE)
--- NOTE | 2018-04-13 23:42 | CON ---
DATE: 04/13/2018 INPATIENT CONSULTATION REASON FOR CONSULTATION: Left proximal humerus fracture. HISTORY OF PRESENT ILLNESS: This is a 68-year-old female who sustained a fall approximately 3 days ago with complaints of left shoulder pain. The patient was subsequently admitted for hyponatremia, and I was consulted for evaluation of the left shoulder. The patient today complains of left shoulder pain. She denies any numbness or tingling in the hand. She denies any other injuries. PHYSICAL EXAMINATION: GENERAL: She is awake and alert but slightly lethargic secondary to pain medication. VITAL SIGNS: Otherwise, her vital signs are stable. EXTREMITIES: Evaluation of her left upper extremity shows significant amount of swelling and ecchymosis involving the left proximal humerus, pain with passive range of motion of the shoulder. Grossly, she is neurovascularly intact with palpable distal pulses. No humeral shaft or elbow deformities appreciated. She is able to move all her other extremities without any pain. DIAGNOSTIC DATA: X-rays: A CAT scan of the left shoulder consistent with a comminuted 100% displaced surgical neck with comminution of the greater tuberosity and also appears to be humeral head splitting fracture as well. IMPRESSION: Left proximal humerus fracture. PLAN: At this point, recommendation will be for a left shoulder hemiarthroplasty once the patient is medically optimized. For right now, I recommend a left upper extremity sling, ice, and we will plan on doing the surgery in the next 3-4 days. Sergei Georges MD [facility] # [id number]
[2018-04-14 07:34] LABS: HEMOGLOBIN 9.2 g/dL (11.0-16.0); MEAN CORPUSCULAR HEMOGLOBIN 27.1 pg (27.0-31.0); MEAN CORPUSCULAR HGB CONC 34.8 g/dL (33.0-37.0); MEAN PLATELET VOLUME 7.5 fL (7.2-11.7); RBC 3.41 Mil/uL (3.80-5.20); RED CELL DISTRIBUTION WIDTH 13.5 % (11.5-14.5); WHITE BLOOD COUNT 10.6 K/uL (4.8-10.8)
[2018-04-14 07:42] LABS: MEAN CELL VOLUME 77.8 fL (81.0-99.0)
[2018-04-14 08:38] LABS: ALB/GLOB RATIO 1.1 (1.0-2.1); ALBUMIN 3.1 g/dL (3.5-5.0); ALT/SGPT 64 U/L (9-52); AST/SGOT 77 U/L (14-36); BLOOD UREA NITROGEN 13 mg/dL (7-17); CALCIUM 8.2 mg/dl (8.6-10.4); GFR AFRICAN-AMERICAN > 60; GFR NON-AFRICAN AMERICAN > 60
[2018-04-14] MEDS: Promethazine DM 6.25 mg-15 mg/5 ml Syrup PO PRN ×2 (10:16→17:44)
--- NOTE | 2018-04-14 17:42 | CP.PCM.PN ---
Subjective - Date & Time of Evaluation Date of Evaluation: 04/14/18 Time of Evaluation: 17:41 - Subjective Subjective: pt is seen and examined, follow up consult is dictated #[id number] serum na is improving, c/w ivf ns at 70 ml/hr Objective - Vital Signs/Intake and Output Vital Signs (last 24 hours): Temp Pulse Resp BP Pulse Ox 98.2 F 81 20 138/77 98 04/14/18 16:00 04/14/18 16:00 04/14/18 16:00 04/14/18 16:00 04/14/18 16:00 Intake and Output: 04/14/18 04/14/18 06:59 18:59 Intake Total 860 920 Output Total 700 Balance 160 920 - Medications Medications: Current Medications Potassium Chloride 20 meq/ (Sodium Chloride) 1,010 mls @ 70 mls/hr IV .[id number] KATHY Last Admin: 04/14/18 02:23 Dose: 70 mls/hr Naproxen (Anaprox) 275 mg PO BIDPC PRN PRN Reason: Pain, Mild (1-3) Last Admin: 04/13/18 17:55 Dose: 275 mg Promethazine HCl/Dextromethorphan (Phenergan Dm Syrup) 5 ml PO Q8H PRN PRN Reason: Cough Last Admin: 04/14/18 10:16 Dose: 5 ml Timolol Maleate (Timoptic 0.5% Ophth Soln) 1 drop OU BID KATHY Last Admin: 04/14/18 09:20 Dose: 1 drop - Labs Labs: 04/14/18 07:21 04/14/18 07:21 PT 12.7 SECONDS (9.7-12.2) H 04/12/18 19:10 INR 1.2 04/12/18 19:10
[2018-04-14] MEDS: Naproxen 275 mg Tab PO PRN (17:44)
--- NOTE | 2018-04-14 17:56 | CP.PCM.PN ---
Subjective - Date & Time of Evaluation Date of Evaluation: 04/14/18 Time of Evaluation: 05:30 - Subjective Subjective: Patient complains of shoulder pain and weaness no chest pain, no shortness of breath, eating well now was OOB to go to bathroom with assistance. Serum Na up to 127 today on NS infusion K-back to normal Echocardiogram reviewed- normal LV size and nl EF, +diastolic dysfunction VS stable Objective - Vital Signs/Intake and Output Vital Signs (last 24 hours): Temp Pulse Resp BP Pulse Ox 98.2 F 81 20 138/77 98 04/14/18 16:00 04/14/18 16:00 04/14/18 16:00 04/14/18 16:00 04/14/18 16:00 Intake and Output: 04/14/18 04/14/18 06:59 18:59 Intake Total 860 920 Output Total 700 Balance 160 920 - Medications Medications: Current Medications Sodium Chloride (Sodium Chloride 0.9%) 1,000 mls @ 70 mls/hr IV .[id number] [facility] Naproxen (Anaprox) 275 mg PO BIDPC PRN PRN Reason: Pain, Mild (1-3) Last Admin: 04/14/18 17:44 Dose: 275 mg Promethazine HCl/Dextromethorphan (Phenergan Dm Syrup) 5 ml PO Q8H PRN PRN Reason: Cough Last Admin: 04/14/18 17:44 Dose: 5 ml Timolol Maleate (Timoptic 0.5% Ophth Soln) 1 drop OU BID KATHY Last Admin: 04/14/18 17:44 Dose: 1 drop - Labs Labs: 04/14/18 07:21 04/14/18 07:21 PT 12.7 SECONDS (9.7-12.2) H 04/12/18 19:10 INR 1.2 04/12/18 19:10 - Constitutional Appears: No Acute Distress - Eye Exam Eye Exam: Normal appearance - ENT Exam ENT Exam: Normal Exam - Respiratory Exam Respiratory Exam: Clear to Ausculation Bilateral, NORMAL BREATHING PATTERN - Cardiovascular Exam Cardiovascular Exam: REGULAR RHYTHM, +S1, +S2 - GI/Abdominal Exam GI & Abdominal Exam: Soft, Normal Bowel Sounds - Extremities Exam Extremities Exam: Normal Inspection Additional comments: L shoulder markedlly swollen on arm sling - Neurological Exam Neurological Exam: Alert, Awake, Oriented x3 - Psychiatric Exam Psychiatric exam: Normal Affect, Normal Mood Assessment and Plan (1) Hyponatremia Assessment & Plan: Na- 127. much improved on NS infusion Status: Acute (2) Closed fracture of left proximal humerus Assessment & Plan: on arm sling and ice compress. Needs Naprosyn once anna while For surgery on Tuesday Status: Acute (3) Acute prerenal azotemia Assessment & Plan: back to normal Status: Resolved (4) Hypertension Assessment & Plan: under controll so far Echocardiogram reviewed- alexandro LV size and EF, Status: Chronic
[2018-04-14] MEDS: Sodium Chloride 0.9% 1,000 ML IV SCH (18:47)
--- NOTE | 2018-04-14 18:59 | CARD ---
APPROVED REPORT Date of service: 04/14/2018 EXAM: Two-dimensional and M-mode echocardiogram with Doppler and color Doppler. Other Information Quality : GoodRhythm : INDICATION Pre-Op RISK FACTORS Hypertension 2D DIMENSIONS IVSd1.4 (0.7-1.1cm)Aortic Root (2D)2.9 (2.0-3.7cm) LVDd3.0 (3.9-5.9cm)LVOT Diameter1.6 (1.8-2.4cm) PWd1.4 (0.7-1.1cm)LVDs2.3 (2.5-4.0cm) FS (%) 24.9 %LVEF (%)50.9 (>50%) Mitral Valve MV E Pesucjgf42.1cm/sMV A Mmpaftfb07.7cm/sE/A ratio0.9 TDI E/Lateral E'0.0E/Medial E'0.0 Pulmonary Valve PV Peak Jpcthmhy405.7cm/sPV Peak Grad.7mmHg Tricuspid Valve TR Peak Daroibhe843xk/sTR Peak Gr.[id number] <Conclusion> normal size la,lv & ra rv. moderate degree of concnetric lvh with lvef of 60-65%. normal lv diastolic funciton. normal aortic,mitral,tv & pv. trace mr,tr with mildly elevated pulmonary systolic pressures of 40 mm of hg. nomral size aortic root. no pericardial effusion. atrial septum is aneurysmal.
[2018-04-15 08:09] LABS: HEMOGLOBIN 10.1 g/dL (11.0-16.0); MEAN CORPUSCULAR HGB CONC 34.2 g/dL (33.0-37.0); RBC 3.75 Mil/uL (3.80-5.20); RED CELL DISTRIBUTION WIDTH 13.9 % (11.5-14.5); WHITE BLOOD COUNT 11.6 K/uL (4.8-10.8)
[2018-04-15 08:43] LABS: IRON 54 ug/dL (37-170)
[2018-04-15 08:45] LABS: BLOOD UREA NITROGEN 14 mg/dL (7-17); CALCIUM 8.4 mg/dl (8.6-10.4); GFR AFRICAN-AMERICAN > 60; GFR NON-AFRICAN AMERICAN > 60
[2018-04-15 08:55] LABS: % IRON SATURATION 19 (20-55); TOTAL IRON BINDING CAPACITY 287 ug/dL (250-450)
[2018-04-15] MEDS: Sodium Chloride 0.9% 1,000 ML IV SCH ×2 (09:00→21:35)
[2018-04-15] MEDS: Multiple Vitamins Tab PO SCH (10:32)
[2018-04-15] MEDS: Promethazine DM 6.25 mg-15 mg/5 ml Syrup PO PRN ×2 (10:33→18:33)
[2018-04-15] MEDS: Naproxen 275 mg Tab PO PRN ×2 (10:34→18:28)
--- NOTE | 2018-04-15 14:13 | CP.PCM.PN ---
Subjective - Date & Time of Evaluation Date of Evaluation: 04/15/18 Time of Evaluation: 14:13 - Subjective Subjective: pt is seen and examined, follow up consult is dictated #[id number] c/w ivf ns at 70 ml/hr consider to add losartan 50 mg qd Objective - Vital Signs/Intake and Output Vital Signs (last 24 hours): Temp Pulse Resp BP Pulse Ox 97.6 F 71 20 168/87 H 97 04/15/18 07:00 04/15/18 07:00 04/15/18 07:00 04/15/18 07:00 04/15/18 07:00 Intake and Output: 04/15/18 04/15/18 06:59 18:59 Intake Total 820 Balance 820 - Medications Medications: Current Medications Sodium Chloride (Sodium Chloride 0.9%) 1,000 mls @ 70 mls/hr IV .[id number] [facility] Last Admin: 04/15/18 09:00 Dose: 70 mls/hr Multivitamins (Hexavitamin) 1 tab PO DAILY [facility] Last Admin: 04/15/18 10:32 Dose: 1 tab Naproxen (Anaprox) 275 mg PO BIDPC PRN PRN Reason: Pain, Mild (1-3) Last Admin: 04/15/18 10:34 Dose: 275 mg Promethazine HCl/Dextromethorphan (Phenergan Dm Syrup) 5 ml PO Q8H PRN PRN Reason: Cough Last Admin: 04/15/18 10:33 Dose: 5 ml Timolol Maleate (Timoptic 0.5% Ophth Soln) 1 drop OU BID [facility] Last Admin: 04/15/18 10:33 Dose: 1 drop - Labs Labs: 04/15/18 07:53 04/15/18 07:53 PT 12.7 SECONDS (9.7-12.2) H 04/12/18 19:10 INR 1.2 04/12/18 19:10
--- NOTE | 2018-04-15 20:43 | PN ---
DATE: 04/15/2018 FOLLOWUP RENAL CONSULTATION LOCATION: The patient is located in room 566, bed B. REQUESTED BY: Ammy Patino MD REASON FOR FOLLOWUP: Hyponatremia, and for further evaluation. SUBJECTIVE: Mrs. Guido is a 68-year-old elderly [place] female with a history of longstanding hypertension, gallbladder disease, on antihypertensive medication, losartan and hydrochlorothiazide, who was admitted after she sustained a fall and injury to the left shoulder and pain and swelling and found to have severe hyponatremia. Serum sodium 111, with abnormal LFTs, and increased BUN and creatinine ratio more than 20:1 BUN and creatinine ratio and also found to have a fracture of the left humerus, and also hypokalemia, started on IV fluids, initially normal saline with 20 mEq KCl at 7 mL/hour and subsequently changed to normal saline. The patient is out of bed to chair. Denies any chest pain or palpitation. Denies any fever or cough. No abdominal pain. No nausea, vomiting, or diarrhea. The patient has complaints of swelling of the left shoulder and pain slightly. The patient is out of bed to chair. PHYSICAL EXAMINATION: VITAL SIGNS: As follows: As of 04/15/2018 at 7 o'clock, blood pressure 160/87, pulse 71, respirations 20, temperature 97.6, saturation 97% on room air. Height 4 feet 11 inches, weight is 105 pounds. GENERAL: Mrs. Guido is a 68-year-old elderly female, thin built, not in distress. HEENT: Pupils normal and reactive to light and accommodation. Conjunctivae pink. Sclerae anicteric. Tongue is moist. Trachea is midline. LUNGS: Symmetric on both sides. Bilateral breath sounds present. Clear to auscultation. CVS: [place] at the fifth intercostal space, midclavicular line. S1, S2 audible. No murmur, rub, or gallop. ABDOMEN: Normal in appearance, soft, tympanic. No guarding. No rigidity. No hepatosplenomegaly. AMMUNITION ASSEMBLY II LABORER: The patient is alert, awake, and oriented x3. Nonfocal neuro examination. Cranial nerves II through XII grossly intact. Sensory and motor system within normal limits. EXTREMITIES: No cyanosis, no clubbing, no edema. In the lower extremities, the patient has swelling of the left shoulder and pain. CURRENT MEDICATIONS: Include as follows: Naproxen 275 mg p.o. b.i.d., multivitamin one tablet daily, Phenergan DM syrup 5 mL p.o. every 8 hours, IV fluids with normal saline at 7 mL/hour, Timoptic eye drops one drop OU b.i.d. LABORATORY DATA: Include as follows: As of 04/15/2018, WBC 11.6, hemoglobin 10.1, hematocrit is 29.7, platelets 331. Sodium 129, potassium 3.8, chloride 96, CO2 24, BUN 14, creatinine 0.5, glucose is 88, calcium 8.4, and iron 54, TIBC 287, iron saturation is 19, and ferritin level is 115. On admission, her BUN was 36, and creatinine was 1.1. ASSESSMENT AND PLAN: In summary, Mrs. Guido is a 68-year-old female with hypertension, status post fall x2 in the house with pain and swelling of the left shoulder, found to have a fracture of the humerus, and low sodium and increased BUN and creatinine. 1. Hyponatremia, most likely secondary to thiazide diuretic-induced, hypothyroidism, hyponatremia. 2. Prerenal azotemia secondary to mild intravascular depletion. 3. Acute renal failure secondary to prerenal azotemia. 4. Fracture of the left humerus. PLAN: Continue analgesics as per Dr. Patino and serum sodium is improving nicely. Continue normal saline at 70 mL/hour and consider to add Cozaar 50 mg p.o. daily and titrate as needed or calcium channel blockers with Norvasc 2.525 mg as needed. Renal function improved, which is normal at this time, creatinine 0.5. We will follow up with you. Thank you for allowing me to participate in your patient's care. Pauline Larson MD
[2018-04-16] MEDS: Sodium Chloride 0.9% 1,000 ML IV SCH ×3 (00:27→17:28)
[2018-04-16] MEDS: Multiple Vitamins Tab PO SCH (09:24)
[2018-04-16 14:17] LABS: BLOOD UREA NITROGEN 8 mg/dL (7-17); GFR AFRICAN-AMERICAN > 60; GFR NON-AFRICAN AMERICAN > 60
[2018-04-16] MEDS: Promethazine DM 6.25 mg-15 mg/5 ml Syrup PO PRN (17:24)
[2018-04-16] MEDS: Naproxen 275 mg Tab PO PRN (17:24)
--- NOTE | 2018-04-16 18:58 | CP.PCM.PN ---
Subjective - Date & Time of Evaluation Date of Evaluation: 04/16/18 Time of Evaluation: 18:58 - Subjective Subjective: pt is seen and examined, follow up consult is dictated #[id number] Objective - Vital Signs/Intake and Output Vital Signs (last 24 hours): Temp Pulse Resp BP Pulse Ox 97.9 F 82 20 170/85 H 98 04/16/18 15:00 04/16/18 16:06 04/16/18 15:00 04/16/18 16:35 04/16/18 15:00 Intake and Output: 04/16/18 04/16/18 06:59 18:59 Intake Total 1360 1999 Balance 1360 1999 - Medications Medications: Current Medications Sodium Chloride (Sodium Chloride 0.9%) 1,000 mls @ 70 mls/hr IV .[id number] [facility] Last Admin: 04/16/18 17:28 Dose: 70 mls/hr Losartan Potassium (Cozaar) 50 mg PO DAILY [facility] Last Admin: 04/16/18 09:24 Dose: 50 mg Multivitamins (Hexavitamin) 1 tab PO DAILY [facility] Last Admin: 04/16/18 09:24 Dose: 1 tab Naproxen (Anaprox) 275 mg PO BIDPC PRN PRN Reason: Pain, Mild (1-3) Last Admin: 04/16/18 17:24 Dose: 275 mg Promethazine HCl/Dextromethorphan (Phenergan Dm Syrup) 5 ml PO Q8H PRN PRN Reason: Cough Last Admin: 04/15/18 18:33 Dose: 5 ml Timolol Maleate (Timoptic 0.5% [facility]) 1 drop OU BID [facility] Last Admin: 04/16/18 17:24 Dose: 1 drop - Labs Labs: 04/15/18 07:53 04/16/18 13:50 PT 12.7 SECONDS (9.7-12.2) H 04/12/18 19:10 INR 1.2 04/12/18 19:10
--- NOTE | 2018-04-16 20:40 | CP.PCM.PN ---
Subjective - Date & Time of Evaluation Date of Evaluation: 04/16/18 Time of Evaluation: 20:39 - Subjective Subjective: Pt seen and examined at bedside. Knows that she is supposed to get surgery for her L shoulder. Objective - Vital Signs/Intake and Output Vital Signs (last 24 hours): Temp Pulse Resp BP Pulse Ox 97.9 F 82 20 148/82 98 04/16/18 15:00 04/16/18 16:06 04/16/18 15:00 04/16/18 19:55 04/16/18 15:00 Intake and Output: 04/16/18 04/17/18 18:59 06:59 Intake Total 1999 Balance 1999 - Medications Medications: Current Medications Losartan Potassium (Cozaar) 50 mg PO DAILY [facility] Last Admin: 04/16/18 09:24 Dose: 50 mg Multivitamins (Hexavitamin) 1 tab PO DAILY [facility] Last Admin: 04/16/18 09:24 Dose: 1 tab Naproxen (Anaprox) 275 mg PO BIDPC PRN PRN Reason: Pain, Mild (1-3) Last Admin: 04/16/18 17:24 Dose: 275 mg Promethazine HCl/Dextromethorphan (Phenergan Dm Syrup) 5 ml PO Q8H PRN PRN Reason: Cough Last Admin: 04/16/18 17:24 Dose: 5 ml Timolol Maleate (Timoptic 0.5% Oph Soln) 1 drop OU BID [facility] Last Admin: 04/16/18 17:24 Dose: 1 drop - Labs Labs: 04/15/18 07:53 04/16/18 13:50 PT 12.7 SECONDS (9.7-12.2) H 04/12/18 19:10 INR 1.2 04/12/18 19:10 Assessment and Plan (1) Closed fracture of left proximal humerus Status: Acute (2) Hypertension Status: Chronic (3) Hyponatremia Status: Acute (4) Osteoporosis Status: Acute
--- NOTE | 2018-04-17 03:37 | PN ---
DATE: 04/16/2018 FOLLOWUP RENAL CONSULTATION LOCATION: The patient is located in room 566, bed B. REQUESTED BY: Ammy Patino MD. REASON FOR FOLLOWUP: Hyponatremia and status post fall. HISTORY OF PRESENT ILLNESS: Mrs. Guido is a 68-year-old elderly [place] female with a past medical history significant for hypertension, gallbladder disease, who was admitted after she had a fall in the house and dizziness and sustained injury to the left shoulder, found to have a swelling of the left shoulder and fracture of the left humerus. The patient was also found to have severe hyponatremia with a serum sodium of 111, and also increased BUN and creatinine. The patient was on the floor for unknown period. The patient is feeling much better, not in distress, still complains of slight pain in the left shoulder, increase with movement. The patient is out of bed to chair. Complaints of need to go to the bathroom more frequently because of IV fluids. The patient denies any chest pain or palpitation. Denies any fever or cough. No abdominal pain. No nausea, vomiting, diarrhea. PHYSICAL EXAMINATION: VITAL SIGNS: As follows: Blood pressure 170/85, pulse 82, respirations 20, temperature 97.9, saturation 98%. Height 4 feet 11 inches, weight is 105 pounds. GENERAL: Mrs. Guido is a 68-year-old elderly female, thin-built, not in distress. HEENT: Pupils normal and reactive to light and accommodation. Conjunctiva pink. Sclerae anicteric. Tongue is moist. Trachea is midline. LUNGS: Symmetric on both sides. Bilateral breath sounds present. Clear to auscultation. CVS: [place] at the fifth intercostal space, midclavicular line. S1, S2 audible. No murmur or gallop. ABDOMEN: Normal in appearance. Soft, tympanic. No guarding. No rigidity. No hepatosplenomegaly. PREDICTIVE MAINTENANCE SPECIALIST: The patient is alert, awake, and oriented x3. Nonfocal neuro examination. Cranial nerves II through XII grossly intact. Sensory and motor system is within normal limits. EXTREMITIES: No cyanosis, no clubbing, no edema. The patient has a swelling of the left shoulder with ice pack. MEDICATIONS: Her current medications include as follows: Naproxen 275 mg p.o. b.i.d. p.r.n., losartan 50 mg p.o. daily, multivitamin 1 tablet daily, Phenergan syrup 5 mL every 8 hours p.r.n., Timoptic eyedrops b.i.d., amlodipine 5 mg p.o. x1 dose this afternoon only. LABORATORY DATA: Include as follows: As of 04/16/2018, sodium 129, potassium is 4, chloride 91, CO2 of 28, BUN 8, creatinine 0.5, glucose 159, calcium 9. As of 04/15/2018, B12 is more than 1000, vitamin D total is 34. Stool for occult blood is negative. Urine culture as of 04/13/2018 is negative, no growth. IMPRESSION: In summary, Mrs. Guido is a 68-year-old elderly very pleasant [place] female with hypertension, gallbladder disease, status post fall with dizziness and injury to the left shoulder with a fracture of the left humerus and low sodium. 1. Hyponatremia, most likely secondary to thiazide diuretic-induced, and also dehydration. 2. Prerenal azotemia, acute renal failure. Renal function improved with hydration and serum sodium also improved to 129. No significant improvement in the last 24 hours. We will discontinue IV fluids, and continue to monitor BMP in a.m. Cannot rule out syndrome of inappropriate antidiuretic hormone secretion at this time due to pain from the left fracture of the left humerus. We will continue to monitor. 3. Hypertension. Agree one dose Norvasc and continue losartan and add Norvasc 2.5 mg or 5 mg daily. Hold for systolic blood pressure less than 130. Repeat BMP in a.m. We will follow with you. Thank you for allowing me to participate in your patient's care. Pauline Larson MD
[2018-04-17 07:38] LABS: BLOOD UREA NITROGEN 12 mg/dL (7-17); CALCIUM 8.8 mg/dl (8.6-10.4); GFR AFRICAN-AMERICAN > 60; GFR NON-AFRICAN AMERICAN > 60
--- NOTE | 2018-04-17 09:10 | CON ---
DATE: 04/13/2018 RENAL CONSULTATION LOCATION: The patient is located in room 566. REQUESTED BY: Ammy Patino MD REASON FOR RENAL CONSULTATION: Hyponatremia, prerenal azotemia, for further evaluation. HISTORY OF PRESENT ILLNESS: The patient is a 68-year-old elderly [place] female with a past medical history significant for hypertension and history of gallbladder disease, who was admitted with chief complaint of left shoulder pain after she fell down the stairs the night before admission on 04/12/2018, and as per the patient, she went to bed and in the middle of the night, she woke up and she went to the bathroom and she could not get up from the floor. She slept on the floor for an unknown period, and then she woke up and she tried to come down from the upstairs slowly, and she tripped again. She fell down. Then, she rolled down about 4 to 5 steps as per the patient, and the neighbors found the patient on the floor and called the police, and subsequently, the patient was brought to the emergency room with the complaints of pain and swelling of the left shoulder with ecchymosis. The patient denies any headache. The patient does complain of dizziness and loss of consciousness. Denies any vomiting. Denies any dysuria or frequency. The patient does complain of dizziness prior to the admission. PAST MEDICAL HISTORY: Significant for gallbladder disease, questionable, for more than 10 years, and hypertension for about 10 years. PAST SURGICAL HISTORY: Denies any surgeries. ALLERGIES: NO KNOWN DRUG ALLERGIES. SOCIAL HISTORY: Denies any smoking, alcohol, or drugs. The patient is a and her in 2014. No children. She lives alone. FAMILY HISTORY: Not significant. CURRENT MEDICATIONS: Include as follows: Naproxen 275 mg p.o. b.i.d. p.r.n., Phenergan DM syrup 5 mL p.o. at bedtime, IV fluids normal saline with 20 mEq KCl at 70 mL per hour, Timoptic eye drops. HOME MEDICATIONS: Losartan with hydrochlorothiazide and Timoptic eye drops. REVIEW OF SYSTEMS: Significant for status post fall x2, fracture of the left humerus and swelling and significant for dizziness. All other review of systems are reviewed and/ or negative. PHYSICAL EXAMINATION: VITAL SIGNS: On admission, as of 04/12/2018 at 1847 hours; blood pressure 120/70, pulse 91, respirations 16, temperature 98.8, saturation 97%. Her current vital signs this afternoon; blood pressure 104/67, pulse 75, respirations 18, temperature 98.1, saturation 100%. Height 4 feet and 11 inches, and weight is 105 pounds. GENERAL: The patient is a 68-year-old elderly, very thin-built [place] female, not in acute distress. HEENT: Pupils are normal and reactive to light and accommodation. Conjunctivae pink. Sclerae anicteric. Tongue is moist and trachea is midline. LUNGS: Symmetric on both sides. Bilateral breath sounds present. No crackles. CVS: [place] at the fifth intercostal space and midclavicular line. S1 and S2 audible. No murmur or gallop. ABDOMEN: Normal in appearance. Soft. Tympanic. No guarding. No rigidity. No hepatosplenomegaly. RAILROAD SWITCHMAN: The patient is alert, awake, oriented x3. Nonfocal on examination. Cranial nerves II through XII grossly intact. Sensory and motor system is within normal limits. EXTREMITIES: No cyanosis. No clubbing. No edema. The patent is not able to move the left shoulder due to the fracture, and also swelling is present, and cold pack is applied to the left shoulder area. LABORATORY DATA: Include as follows: As of 04/11/2018, WBC 15.7, hemoglobin 12.8, hematocrit is 36.1, platelets 293. Neutrophil 75, bands 2, lymph 10, monos 13. PT 12.7 and INR is 1.2. As of 04/11/2018, sodium 111, potassium 3.3, chloride 73, CO2 of 24, BUN 36, creatinine 1.1, glucose is 138, calcium 9.5, total bilirubin 3.7, AST 221, ALT 82, alkaline phosphatase is 151, total protein 8.5, albumin is 4.7. Urinalysis, yellow clear, pH of 6, specific gravity 1.017, protein negative, glucose 1+, ketones negative, blood negative, nitrites negative, bilirubin negative, urobilinogen 4, leukocyte esterase negative, wbc 8, rbc 1, and hyaline cast 0 to 2. OTHER LABORATORY DATA: As of 04/13/2018, WBC 11.9 this morning, hemoglobin 9.8, hematocrit is 27.3, MCV is 75.3, and platelets 247. Sodium 113, potassium 3.4, chloride 85, CO2 of 20, anion gap is 11, BUN 25, creatinine 0.7, glucose 118, serum osmolality 245, serum uric acid level is 4.2, calcium is 7.9. Total bilirubin 2, AST 114, ALT 55, alkaline phosphatase is 106. Total protein 5.9, albumin is 3.1. TSH is 1.23, and serum cholesterol is 21.9. Urinalysis, yellow, hazy, pH 6, specific gravity 1.017, protein 1+, glucose 2+, ketones trace, blood negative, nitrites negative, bilirubin negative, urobilinogen 2, leukocyte esterase 1+, wbc 30, rbc 1, and bacteria 3. Urine osmolality is 555. OTHER REPORTS: X-ray of the shoulder as of 04/12/2018, impression, proximal humeral fracture with dislocation. Consider CT of the left shoulder for fracture fragment mapping and joint osseus alignment assessment. 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 Chest x-ray, as of 04/12/2018, no active pulmonary disease. Ultrasound of the abdomen as of 04/12/2018, impression: Diffuse increased echogenicity in the liver, may reflect hepatic steatosis, however, parenchymal infectious or inflammatory etiologies cannot be entirely excluded. No cholelithiasis. Mild dilatation of the CBD without evidence of choledocholithiasis. A 5 mm calcification in the lower pole of the left kidney, which may represent a nonobstructing stone. Simple cyst in the left kidney and larger in the upper pole, measures about 4.1 cm. Right kidney measures 9.8 cm, normal echogenicity, no calculus, mass, or adenopathy. Left kidney measures 10 cm, normal echogenicity, no mass or adenopathy. There is 5 mm calcification in the lower pole. There is a 3.8 x 4.1 x 3.8 cm simple cyst in the upper pole and 1.5 x 1.4 x 1.6 simple cyst in the interpole region. CT of the upper extremity, as of 04/13/2018, impression: Acute comminuted displaced fracture in the surgical neck of the humerus with posterior, lateral, and inferior displacement of the humeral head, overriding the proximal metaphysis of the humerus. A posterior, inferior subluxation of the glenohumeral joint. ASSESSMENT AND PLAN: In summary, the patient is a 68-year-old elderly female with a history of hypertension, was admitted with status post fall at home from the stairs and lying on the floor for unknown period in the nighttime, and the patient was found to have swelling and pain in the left shoulder. X-ray consistent with fracture of the left humerus, and increased BUN and creatinine, and also hypokalemia and hyponatremia. Started on IV fluids, normal saline with 20 mEq KCl. 1. Hyponatremia, most likely secondary to intravascular depletion, secondary to hypotonic hypovolemic hyponatremia secondary to diuretics. Cannot rule out syndrome of inappropriate antidiuretic hormone less likely. 2. Status post fall. 3. Fracture of the left humerus secondary to fall at home. 4. Hypokalemia. 5. Prerenal azotemia. 6. Abnormal liver function tests, most likely secondary to hypoperfusion and liver function tests are improving slowly with hydration also. PLAN: Continue IV fluids. Normal saline with 50 mEq KCl as started by Dr. Ammy Patino. Agree with gentle IV hydration. Goal is to raise the serum sodium 6 mEq to 8 mEq per day, and continue to monitor BMP this evening and also in a.m. Follow up with Orthopedic Surgery for surgery, and continue analgesics as needed. Avoid hydrochlorothiazide. We will follow with you. Thank you for allowing me to participate in your patient's care. We requested this morning urine lytes, osmolality, serum cortisol, TSH, and serum uric acid to rule out SIADH. All the workup consistent with prerenal and intravascular depletion. Pauline Larson MD
--- NOTE | 2018-04-17 09:12 | PN ---
DATE: 04/14/2018 FOLLOWUP RENAL CONSULTATION LOCATION: The patient is located in room 566, bed B. REQUESTED BY: Ammy Patino MD REASON FOR FOLLOWUP: Hyponatremia. SUBJECTIVE: Mrs. Guido is a 68-year-old elderly female with a past medical history significant for hypertension and gallbladder disease who was admitted after she had a fall in the house, and pain and swelling of the left shoulder, unable to ambulate. The patient's neighbor called police, and subsequently, the patient was brought to the hospital and found to have severe hyponatremia and hypokalemia. Started on IV fluids normal saline with 20 mEq KCl at 70 mL/hour. Serum sodium is gradually improving. The patient is feeling much better, tolerating regular diet. Denies any headache or dizziness. Denies any chest pain or palpitation. Denies any fever or cough. No abdominal pain. No nausea, vomiting or diarrhea. The patient does complain of some swelling and pain of the left shoulder. PHYSICAL EXAMINATION: VITAL SIGNS: As follows: Blood pressure 138/77, pulse 81, respirations 20, temperature 98.2, saturation 98%. Height 4 feet 11 inches. Weight is 105 pounds. GENERAL: Mrs. Guido is a 68-year-old elderly female, moderately built, moderately nourished, not in distress. HEENT: Pupils are normal and reactive to light and accommodation. Conjunctivae are pink. Sclerae are anicteric. Tongue is moist. Trachea is midline. LUNGS: Symmetric on both sides. Bilateral breath sounds present. Clear to auscultation. CVS: [place] at the fifth intercostal space, midclavicular line. S1, S2 audible. No murmur or gallop. ABDOMEN: Normal in appearance, soft, tympanic. No guarding. No rigidity. No hepatosplenomegaly. FURNITURE FINISHER HELPER: The patient is alert, awake, oriented x3. Nonfocal neuro examination. Cranial nerves II through XII grossly intact. Sensory and motor system is within normal limits. EXTREMITIES: No cyanosis, no clubbing, no edema. The patient has a fracture of the left humerus and also cold pack is applied. MEDICATIONS: Her current medication include as follows: Naproxen 275 mg p.o. b.i.d. p.r.n., Phenergan DM 5 mL p.o. every 8 hours p.r.n., IV fluids normal saline at 70 mL/hour, Timolol eyedrops 1 drop both eyes b.i.d. LABORATORY DATA: Include as follows: As of 04/14/2018, WBC 10.6, hemoglobin 9.2, hematocrit is 26.5, MCV 77.8, and platelets 251. Sodium 127, potassium 4.3, chloride 98, CO2 of 24, BUN 13, creatinine 0.5, glucose 93, calcium is 8.2. Total bili 1.5, AST 77, ALT 68, alkaline phosphatase 114, total protein 5.9, albumin is 3.1. ASSESSMENT AND PLAN: In summary, Mrs. Guido is a 68-year-old elderly female with history of hypertension, status post fall x2 in the house and unable to ambulate with pain and swelling of the left shoulder and found to have fracture of the left humerus and low sodium. 1. Hyponatremia, most likely secondary to and diuretic-induced hyponatremia, doubt syndrome of inappropriate antidiuretic hormone, and also intravascular depletion and dehydration. 2. Hypertension, blood pressure is stable. 3. Anemia, rule out iron-deficiency anemia. We will check iron, TIBC, ferritin level; and check urine cultures. Also continue IV fluids normal saline at 70 mL/hour. Repeat BMP in a.m. We will add multivitamin 1 tablet daily. Thank you for allowing me to participate in your patient's care. Case discussed with Dr. Ammy Patino in rounds. Pauline Larson MD
[2018-04-17] MEDS: Multiple Vitamins Tab PO SCH (09:22)
[2018-04-17] MEDS: Promethazine DM 6.25 mg-15 mg/5 ml Syrup PO PRN ×2 (09:23→18:24)
[2018-04-17 10:29] LABS: HEMOGLOBIN 10.4 g/dL (11.0-16.0); MEAN CELL VOLUME 79.2 fL (81.0-99.0); MEAN CORPUSCULAR HEMOGLOBIN 27.5 pg (27.0-31.0); MEAN CORPUSCULAR HGB CONC 34.7 g/dL (33.0-37.0); MEAN PLATELET VOLUME 6.4 fL (7.2-11.7); RBC 3.77 Mil/uL (3.80-5.20); RED CELL DISTRIBUTION WIDTH 13.9 % (11.5-14.5); WHITE BLOOD COUNT 10.4 K/uL (4.8-10.8)
[2018-04-17 10:37] LABS: INR 1.2; PROTHROMBIN TIME 12.7 SECONDS (9.7-12.2)
--- NOTE | 2018-04-17 12:30 | CP.PCM.PN ---
Subjective - Date & Time of Evaluation Date of Evaluation: 04/17/18 Time of Evaluation: 12:27 - Subjective Subjective: Patient states pain is controlled. Hot compress to left shoulder per Dr. Patino removed (vasodilation, increased swelling), ice applied. No new complaints. Objective - Vital Signs/Intake and Output Vital Signs (last 24 hours): Temp Pulse Resp BP Pulse Ox 97.7 F 68 20 154/81 H 99 04/17/18 07:00 04/17/18 07:46 04/17/18 07:00 04/17/18 07:00 04/17/18 07:00 Intake and Output: 04/17/18 04/17/18 06:59 18:59 Intake Total 1000 Output Total 200 Balance 800 - Medications Medications: Current Medications Amlodipine Besylate (Norvasc) 5 mg PO DAILY [facility] Last Admin: 04/17/18 09:23 Dose: 5 mg Losartan Potassium (Cozaar) 50 mg PO DAILY [facility] Last Admin: 04/17/18 09:23 Dose: 50 mg Multivitamins (Hexavitamin) 1 tab PO DAILY [facility] Last Admin: 04/17/18 09:22 Dose: 1 tab Promethazine HCl/Dextromethorphan (Phenergan Dm Syrup) 5 ml PO Q8H PRN PRN Reason: Cough Last Admin: 04/17/18 09:23 Dose: 5 ml Timolol Maleate (Timoptic 0.5% Oph Soln) 1 drop OU BID [facility] Last Admin: 04/17/18 09:23 Dose: 1 drop - Labs Labs: 04/17/18 10:24 04/17/18 07:12 PT 12.7 SECONDS (9.7-12.2) H 04/17/18 10:24 INR 1.2 04/17/18 10:24 APTT 37 SECONDS (21-34) H 04/17/18 10:24 - Extremities Exam Additional comments: Left shoulder; swelling improved, still moderate ecchymosis, +ROM fingers, wrist , sensation itnact +radial pulse, sling intact Assessment and Plan (1) Closed fracture of left proximal humerus Assessment & Plan: for OR 04/18 3pm T&C labs reviewed d/w rocky Grey with above Status: Acute
--- NOTE | 2018-04-17 13:29 | CP.PCM.PN ---
Subjective - Date & Time of Evaluation Date of Evaluation: 04/17/18 Time of Evaluation: 11:15 - Subjective Subjective: Patient oob sitting up in chair. Feels comfortable.Pain controlled. Serum Na 130 today. No complaints Continue current Rx For OR tomorrow. Objective - Vital Signs/Intake and Output Vital Signs (last 24 hours): Temp Pulse Resp BP Pulse Ox 97.7 F 68 20 154/81 H 99 04/17/18 07:00 04/17/18 07:46 04/17/18 07:00 04/17/18 07:00 04/17/18 07:00 Intake and Output: 04/17/18 04/17/18 06:59 18:59 Intake Total 1000 Output Total 200 Balance 800 - Medications Medications: Current Medications Amlodipine Besylate (Norvasc) 5 mg PO DAILY [facility] Last Admin: 04/17/18 09:23 Dose: 5 mg Losartan Potassium (Cozaar) 50 mg PO DAILY [facility] Last Admin: 04/17/18 09:23 Dose: 50 mg Multivitamins (Hexavitamin) 1 tab PO DAILY [facility] Last Admin: 04/17/18 09:22 Dose: 1 tab Promethazine HCl/Dextromethorphan (Phenergan Dm Syrup) 5 ml PO Q8H PRN PRN Reason: Cough Last Admin: 04/17/18 09:23 Dose: 5 ml Timolol Maleate (Timoptic 0.5% Ophth Soln) 1 drop OU BID [facility] Last Admin: 04/17/18 09:23 Dose: 1 drop - Labs Labs: 04/17/18 10:24 04/17/18 07:12 PT 12.7 SECONDS (9.7-12.2) H 04/17/18 10:24 INR 1.2 04/17/18 10:24 APTT 37 SECONDS (21-34) H 04/17/18 10:24 - Constitutional Appears: No Acute Distress - Head Exam Head Exam: NORMAL INSPECTION - Neck Exam Neck Exam: Normal Inspection - Respiratory Exam Respiratory Exam: Clear to Ausculation Bilateral, NORMAL BREATHING PATTERN - Cardiovascular Exam Cardiovascular Exam: REGULAR RHYTHM, +S1, +S2 - GI/Abdominal Exam GI & Abdominal Exam: Soft, Hyperactive Bowel Sounds - Extremities Exam Additional comments: L shoulder fracture - Back Exam Back Exam: NORMAL INSPECTION - Neurological Exam Neurological Exam: Alert, Awake, Oriented x3 - Psychiatric Exam Psychiatric exam: Normal Affect, Normal Mood Assessment and Plan (1) Hyponatremia Assessment & Plan: Na 130 today. Status: Acute (2) Closed fracture of left proximal humerus Assessment & Plan: for OR tomorrow. Status: Acute (3) Acute prerenal azotemia Status: Resolved (4) Hypertension Assessment & Plan: controlled Status: Chronic
--- NOTE | 2018-04-17 18:59 | CP.PCM.PN ---
Subjective - Date & Time of Evaluation Date of Evaluation: 04/17/18 Time of Evaluation: 18:58 - Subjective Subjective: pt is seen and examined, follow up consult is dictated #[id number] will start d5w at 42 ml/min Objective - Vital Signs/Intake and Output Vital Signs (last 24 hours): Temp Pulse Resp BP Pulse Ox 97.9 F 83 20 117/74 98 04/17/18 15:59 04/17/18 17:35 04/17/18 15:59 04/17/18 15:59 04/17/18 15:59 Intake and Output: 04/17/18 04/17/18 06:59 18:59 Intake Total 1000 480 Output Total 200 Balance 800 480 - Medications Medications: Current Medications Amlodipine Besylate (Norvasc) 5 mg PO DAILY [facility] Last Admin: 04/17/18 09:23 Dose: 5 mg Losartan Potassium (Cozaar) 50 mg PO DAILY [facility] Last Admin: 04/17/18 09:23 Dose: 50 mg Multivitamins (Hexavitamin) 1 tab PO DAILY [facility] Last Admin: 04/17/18 09:22 Dose: 1 tab Promethazine HCl/Dextromethorphan (Phenergan Dm Syrup) 5 ml PO Q8H PRN PRN Reason: Cough Last Admin: 04/17/18 18:24 Dose: 5 ml Timolol Maleate (Timoptic 0.5% Oph Soln) 1 drop OU BID [facility] Last Admin: 04/17/18 17:15 Dose: 1 drop - Labs Labs: 04/17/18 10:24 04/17/18 07:12 PT 12.7 SECONDS (9.7-12.2) H 04/17/18 10:24 INR 1.2 04/17/18 10:24 APTT 37 SECONDS (21-34) H 04/17/18 10:24
[2018-04-17 19:57] LABS: INR 1.1; PROTHROMBIN TIME 12.3 SECONDS (9.7-12.2)
[2018-04-18 07:23] LABS: BLOOD UREA NITROGEN 15 mg/dL (7-17); CALCIUM 8.4 mg/dl (8.6-10.4); GFR AFRICAN-AMERICAN > 60; GFR NON-AFRICAN AMERICAN > 60
--- NOTE | 2018-04-18 07:42 | PN ---
DATE: 04/17/2018 FOLLOWUP RENAL CONSULTATION LOCATION: The patient is located in room 566. REQUESTED BY: Ammy Patino MD REASON FOR FOLLOWUP: Hyponatremia and for further evaluation. SUBJECTIVE: The patient is a 68-year-old elderly Bulgarian female with a history of longstanding hypertension, no diabetes, gallbladder disease who was admitted after she had a fall x2 in the house, feeling dizzy and lying on the floor for unknown period, who was found to have pain in the left shoulder and swelling of the left shoulder, and subsequently the patient was found to have a fracture of the left humerus in the ER and admitted for hyponatremia and fracture of the left humerus. The patient is out of bed to chair, not in acute distress. No chest pain. No palpitation. No fever. No cough. No abdominal pain. No nausea, vomiting, or diarrhea. PHYSICAL EXAMINATION: VITAL SIGNS: As follows: Blood pressure 117/74, pulse 80, respirations 20, temperature 97.9, saturation 98%. Height is 4 feet and 11 inches, and weight is 105 pounds. GENERAL: The patient is a 68-year-old elderly [place]ian female, thin built, not in acute distress. HEENT: Pupils normal and reactive to light and accommodation. Conjunctivae pink. Sclerae anicteric. Tongue is moist. Trachea is midline. LUNGS: Symmetric on both sides. Bilateral breath sounds present. Clear to auscultation. CVS: [place] at the fifth intercostal space, midclavicular line. S1, S2 audible. No murmur or gallop. ABDOMEN: Normal in appearance, soft, tympanic. No guarding. No rigidity. No hepatosplenomegaly. ENROLLMENT REPRESENTATIVE: The patient is alert, awake, and oriented x3. Nonfocal neuro examination. Cranial nerves II through XII grossly intact. Sensory and motor system are within normal limits. EXTREMITIES: No cyanosis, no clubbing, no edema. The patient has swelling of the left shoulder region. MEDICATIONS: Her current medications include as follows: Cozaar 50 mg p.o. daily, multivitamin one tablet daily, amlodipine 5 mg p.o. daily, Phenergan DM syrup 5 mL p.o. every 8 hours, and Timoptic eye drops. LABORATORY DATA: Include as follows: As of 04/17/2018, WBC 10.4, hemoglobin 10.4, hematocrit is 29.9, platelets 423. PT 12.7, PTT 37, INR 1.2. Sodium 130, potassium 3.6, chloride 91, CO2 31, BUN 12, creatinine 0.6, glucose 104, and calcium 8.8. ASSESSMENT AND PLAN: In summary, the patient is a 68-year-old elderly [place]ian female with hypertension, gallbladder disease with feeling dizzy, lightheaded, status post fall with injury to the left shoulder and fracture of the left humerus and increased blood urea nitrogen and creatinine on admission. 1. Hypertension. Blood pressure is stable. Continue with Cozaar and amlodipine and hold for systolic blood pressure less than 130 both medications. 2. Status post acute renal failure, secondary to intravascular depletion. Renal function improved with hydration gentle. 3. Hyponatremia, most likely secondary to thyroid-induced hyponatremia, and also volume depletion and dehydration. Serum sodium improved gradually to 130 now. The patient is asymptomatic. 4. Fracture of the left humerus. Continue cold pack to the left shoulder and also analgesics as needed. The patient is scheduled for surgery tomorrow at 3 p.m. We will start her on D5W at 42 mL/hour once the patient is placed on n.p.o. We will follow with you. Thank you for allowing me to participate in your patient's care. Pauline Larson MD
[2018-04-18] MEDS: Multiple Vitamins Tab PO SCH (09:12)
[2018-04-18] MEDS: Promethazine DM 6.25 mg-15 mg/5 ml Syrup PO PRN (09:12)
--- NOTE | 2018-04-18 11:33 | CP.PCM.PN ---
Subjective - Date & Time of Evaluation Date of Evaluation: 04/18/18 Time of Evaluation: 11:15 - Subjective Subjective: patient feeling well. No chest pain, no shrtness of breath, ambulating cautiously inside the room L shoulder much less swollen with icepack VS stable. BP controlled Na 131 NPO from midnight, on D5W infusion. For surgery later today Objective - Vital Signs/Intake and Output Vital Signs (last 24 hours): Temp Pulse Resp BP Pulse Ox 97.7 F 81 20 148/86 98 04/18/18 07:00 04/18/18 07:32 04/18/18 07:00 04/18/18 07:00 04/18/18 07:00 Intake and Output: 04/18/18 04/18/18 06:59 18:59 Intake Total 600 Balance 600 - Medications Medications: Current Medications Amlodipine Besylate (Norvasc) 5 mg PO DAILY [facility] Last Admin: 04/18/18 09:12 Dose: 5 mg Dextrose (Dextrose 5% In Water 1000 Ml) 1,000 mls @ 42 mls/hr IV .[id number] [facility] Stop: 04/18/18 23:56 Last Admin: 04/18/18 00:30 Dose: 42 mls/hr Losartan Potassium (Cozaar) 50 mg PO DAILY [facility] Last Admin: 04/18/18 09:12 Dose: 50 mg Multivitamins (Hexavitamin) 1 tab PO DAILY [facility] Last Admin: 04/18/18 09:12 Dose: 1 tab Promethazine HCl/Dextromethorphan (Phenergan Dm Syrup) 5 ml PO Q8H PRN PRN Reason: Cough Last Admin: 04/18/18 09:12 Dose: 5 ml Timolol Maleate (Timoptic 0.5% Ophth Soln) 1 drop OU BID [facility] Last Admin: 04/18/18 09:12 Dose: 1 drop - Labs Labs: 04/17/18 10:24 04/18/18 07:00 PT 12.3 SECONDS (9.7-12.2) H 04/17/18 19:45 INR 1.1 04/17/18 19:45 APTT 37 SECONDS (21-34) H 04/17/18 10:24 - Constitutional Appears: No Acute Distress - Head Exam Head Exam: NORMOCEPHALIC - Eye Exam Eye Exam: Normal appearance - ENT Exam ENT Exam: Normal Exam - Neck Exam Neck Exam: Normal Inspection - Respiratory Exam Respiratory Exam: Clear to Ausculation Bilateral, NORMAL BREATHING PATTERN - Cardiovascular Exam Cardiovascular Exam: REGULAR RHYTHM, +S1, +S2 - GI/Abdominal Exam GI & Abdominal Exam: Soft, Normal Bowel Sounds - Extremities Exam Additional comments: L shoulder fracture - Neurological Exam Neurological Exam: Alert, Awake, Oriented x3 - Psychiatric Exam Psychiatric exam: Normal Affect, Normal Mood - Skin Skin Exam: Dry, Intact, Normal Color, Warm Assessment and Plan (1) Hyponatremia Assessment & Plan: much imnproved. Na- 131 today Status: Acute (2) Closed fracture of left proximal humerus Assessment & Plan: for surgery today Status: Acute (3) Acute prerenal azotemia Status: Resolved (4) Hypertension Assessment & Plan: controlled Status: Chronic
--- NOTE | 2018-04-18 11:48 | CP.PCM.PN ---
Subjective - Date & Time of Evaluation Date of Evaluation: 04/18/18 Time of Evaluation: 11:47 - Subjective Subjective: pt is seen and examined, follow up consult is dictated #[id number] Objective - Vital Signs/Intake and Output Vital Signs (last 24 hours): Temp Pulse Resp BP Pulse Ox 97.7 F 81 20 148/86 98 04/18/18 07:00 04/18/18 07:32 04/18/18 07:00 04/18/18 07:00 04/18/18 07:00 Intake and Output: 04/18/18 04/18/18 06:59 18:59 Intake Total 600 Balance 600 - Medications Medications: Current Medications Amlodipine Besylate (Norvasc) 5 mg PO DAILY [facility] Last Admin: 04/18/18 09:12 Dose: 5 mg Dextrose (Dextrose 5% In Water 1000 Ml) 1,000 mls @ 42 mls/hr IV .[id number] [facility] Stop: 04/18/18 23:56 Last Admin: 04/18/18 00:30 Dose: 42 mls/hr Losartan Potassium (Cozaar) 50 mg PO DAILY [facility] Last Admin: 04/18/18 09:12 Dose: 50 mg Multivitamins (Hexavitamin) 1 tab PO DAILY [facility] Last Admin: 04/18/18 09:12 Dose: 1 tab Promethazine HCl/Dextromethorphan (Phenergan Dm Syrup) 5 ml PO Q8H PRN PRN Reason: Cough Last Admin: 04/18/18 09:12 Dose: 5 ml Timolol Maleate (Timoptic 0.5% Oph Soln) 1 drop OU BID [facility] Last Admin: 04/18/18 09:12 Dose: 1 drop - Labs Labs: 04/17/18 10:24 04/18/18 07:00 PT 12.3 SECONDS (9.7-12.2) H 04/17/18 19:45 INR 1.1 04/17/18 19:45 APTT 37 SECONDS (21-34) H 04/17/18 10:24
[2018-04-18] MEDS ORDERED: Propofol 10 mg/ml Inj (20 ML) ONE (14:54)
[2018-04-18] MEDS ORDERED: Rocuronium 10 mg/ml (5 ml) ONE ×2 (14:57→17:38)
[2018-04-18] MEDS ORDERED: ePHEDrine 50 mg/ml Inj ONE ×2 (14:58→16:04)
[2018-04-18] MEDS ORDERED: Phenylephrine 10 mg/ml Inj ONE (14:58)
--- NOTE | 2018-04-18 15:13 | CARD ---
APPROVED REPORT Date of service: 04/14/2018 EKG Measurement Heart [id number] <Conclusion> Normal sinus rhythm Normal ECG
[2018-04-18] MEDS ORDERED: ceFAZolin IV 2 gm in Dextrose 2 GM/50 ML BAG IVPB ONE (15:15)
[2018-04-18] MEDS ORDERED: Bacitracin 150,000 UNIT in Sodium Chloride 0.9% Irrig 3,000 ML IR SCH (16:45)
[2018-04-18] MEDS ORDERED: Vancomycin 1 g Inj ONE (18:19)
[2018-04-18] MEDS ORDERED: Neostigmine Methylsulfate 3mg/3ml Syringe IV ONE (18:46)
[2018-04-18] MEDS ORDERED: Esmolol 100 mg/10ml Inj IV ONE (18:46)
[2018-04-18] MEDS ORDERED: HYDROmorphone 0.5 mg/0.5 ml ISec IVP PRN (19:07)
[2018-04-18] MEDS ORDERED: oxyCODONE 5 mg Immediate Release Tab PO PRN (19:09)
--- NOTE | 2018-04-18 19:12 | PCM.SURG1 ---
Surgeon's Initial Post Op Note - Surgeon's Notes Surgeon: Mateo Georges MD Activities Therapist: Dasha Dias Pa-C Type of Anesthesia: General Endo Anesthesia Administered By: Dr. Sheppard Pre-Operative Diagnosis: left proximal humerus fx Operative Findings: see full note Post-Operative Diagnosis: same Operation Performed: left shoulder hemiarthoplasty Specimen/Specimens Removed: none Estimated Blood Loss: EBL {In ML}: 124 Blood Products Given: N/A Drains Used: No Drains Post-Op Condition: Fair Date of Surgery/Procedure: 04/18/18 Time of Surgery/Procedure: 19:12
[2018-04-18] MEDS: ceFAZolin IV 1 gm in Dextrose 1 GM/50 ML BAG IVPB SCH (22:42)
[2018-04-18] MEDS: HYDROmorphone 0.5 mg/0.5 ml ISec IVP PRN (22:43)
[2018-04-19 00:50] VITALS: RESP 20
--- NOTE | 2018-04-19 01:36 | PN ---
Copied To: Pauline Larson MD Attending MD: Pauline Larson MD DATE: 04/18/2018 LOCATION: The patient is located in room 667, Bed B. REQUESTING PHYSICIAN: Ammy Patino MD REASON FOR FOLLOWUP: Hyponatremia. SUBJECTIVE: Mrs. Guido is a 68-year-old elderly Marshallese female with a history of hypertension and gallbladder disease who was admitted after she had fell twice in the house, and also sustained injury left shoulder associated with swelling and pain and found to have a fracture of the left humerus. The patient was also found to have severe hyponatremia and dehydration, was started on IV fluids normal saline with 20 mEq KCl. The serum sodium gradually improved. The patient is scheduled for orthopedic surgery today. The patient is on gentle IV hydration D5W at 42 mL/ hour. The patient is n.p.o. The patient is out of bed to chair. He denies any complaints. No chest pain. No palpitation. No fever. No cough. No abdominal pain. No nausea, vomiting, or diarrhea. MEDICATIONS: Include as follows: Losartan 50 mg p.o. daily, D5W at 42 mL per hour, multivitamin one tablet daily, amlodipine 5 mg daily, Phenergan DM syrup 5 mL p.o. every 8 hours, Timoptic eye drops, Tylenol, Zofran, and also oxycodone 5 mg p.o. every 6 hours p.r.n. for pain, and Cefazolin 1 g IV every 8 hours. LABORATORY DATA: Her laboratory data include as follows: As of 04/18/2018: Sodium 131, potassium 3.7, chloride 92, CO2 of 28. BUN 15, creatinine 0.5, glucose 102, calcium 8.4. ASSESSMENT AND PLAN: In summary, Mrs. Guido is a 68-year-old elderly female with hypertension, status post fall with a fracture of the left humerus and hyponatremia. 1. Hyponatremia secondary to multifactorial intravascular depletion and hydrochlorothiazide induced. Serum sodium gradually improved with normal saline. Continue IV fluids D5W 42 mL/ hour as patient is n.p.o. Serum sodium is slowly improving. 2. Hypertension. Continue blood pressure medication, on losartan and Norvasc. 3. Status post fall with fracture of the left humerus. The patient is scheduled for surgery this afternoon. Continue analgesics as per the primary care physician, Dr. Ammy Patino. We will follow with you. Thank you for allowing me to participate in your patient's care. Pauline Larson MD
[2018-04-19] MEDS: HYDROmorphone 0.5 mg/0.5 ml ISec IVP PRN (05:05)
--- NOTE | 2018-04-19 06:23 | OP ---
Copied To: Sergei Georges MD Attending MD: Sergei Georges MD PROCEDURE DATE: 04/18/2018 PREOPERATIVE DIAGNOSIS: Left proximal humerus fracture. POSTOPERATIVE DIAGNOSIS: Left proximal humerus fracture. PROCEDURE: Left shoulder hemiarthroplasty. SURGEON: Sergei Georges MD. GRAIN DISTRIBUTOR: Dr. Georges was assisted by Farida Smith, physician customer marketing assistant; and Fauzia Greer, physician customer marketing assistant. Both physician assistants were scrubbed and present throughout the entire case and assisted in patient positioning, manipulation of the extremity, and wound closure. ANESTHESIA: General. COMPLICATIONS: None. ESTIMATED BLOOD LOSS: 125 mL. IMPLANT: A [place] left shoulder hemiarthroplasty. INDICATIONS FOR PROCEDURE: This is a 68-year-old female who presented status post fall with left shoulder pain and deformity. Clinical and radiographic examination consistent with a comminuted left proximal humerus fracture. Recommendations are for a left shoulder hemiarthroplasty. The risk, benefits, and alternatives of the procedure were discussed with the patient and informed consent was obtained. DESCRIPTION OF PROCEDURE: The surgical site was finally verified in the preoperative holding area. The patient was taken to the operating room and placed supine on the operating room table. After administration of general anesthesia, the patient received 2 g of Ancef IV. The patient was positioned in the beach chair. Care was taken to make sure all bony prominence as well as the head was well padded and protected, and Venodyne boots were placed in bilateral lower extremities and left upper extremity was prepped and draped in usual sterile fashion. The bony landmarks were identified about the shoulder and approximately an 8 cm oblique incision was made over the deltopectoral interval. Soft tissue was dissected down to the interval. The cephalic vein was identified, dissected and retracted medially. The deltopectoral groove was then split down to the clavipectoral fascia which was incised. At this point, some fascia hematoma was evacuated, and the long head of the biceps tendon appeared to be lacerated. This was tagged for later tenodesis. Next, the patient was found to have multiple bony fragments and these were removed. The subscapularis which had been centrally avulsed off with some bone was also tagged with #5 FiberWire suture for later repair. In a similar fashion, the greater tuberosity fragment was debulked of bone and two #5 FiberWire sutures were passed for later repair. At this point, the humeral head was removed and passed off the field to be measured. The glenoid was inspected for any debris and at this point, our attention directed to the humeral shaft. Using the appropriate starting reamer, the medullary canal of the proximal humerus was reamed to the appropriate depth and the canal was reamed to allow for a 14 mm prosthetic stem. Being careful to maintain proper version, the trial humeral stem was impacted into place. The appropriate sized head was then impacted over the trial stem, and then the shoulder was taken through a range of motion. The patient was noted to easily have approximately 110 degrees of forward flexion, internal rotation to the abdomen without any difficulty, external rotation to approximately 40 degrees, and with anterior posterior translation approximately 50% of the glenoid width with good bounce back. Satisfied, the shoulder was dislocated and the trial implant was removed. The shoulder was then pulse lavaged with antibiotic saline solution and bony surfaces were dried. The actual stem was then impacted into place and seated to the appropriate depth being careful to maintain proper version. Next, the actual head was then impacted over the stem and the shoulder was reduced. Again, the shoulder was taken through a range of motion. It was noted to be stable. At this point, lesser and greater tuberosity fragments were repaired through holes in the implant as well as through bony holes that were drilled with a K-wire through the anteromedial and lateral aspect of the proximal humerus. Once this was done, good full coverage was obtained and repair was further supplemented with #1 Vicryl suture. At this point, the arm was externally rotated to approximately 30 degrees. No gapping was noted at the repair site of the subscapularis. Satisfied, the wound was once again irrigated and biceps was tenodesed to the anterior aspect of the proximal humerus. The deltopectoral interval was loosely approximated with 0 Vicryl suture. The subcutaneous tissue was closed using 0 Vicryl and 2-0 Vicryl suture and the skin was closed using 3-0 nylon. Sterile dressing was applied and left upper extremity was placed in a sling. The patient was awakened from the procedure in stable condition. Sergei Georges MD [facility] # [id number]
[2018-04-19] MEDS: ceFAZolin IV 1 gm in Dextrose 1 GM/50 ML BAG IVPB SCH (06:50)
--- NOTE | 2018-04-19 07:36 | RAD ---
Date of service: 04/18/2018 PROCEDURE: Radiographs of the Left Shoulder HISTORY: s/p L shoulder demetri. Patient in recovery COMPARISON: No prior. FINDINGS: BONES: The patient is status post left shoulder arthroplasty. The hardware is seen at appropriate position. JOINTS: No evidence of dislocation at the left shoulder SOFT TISSUES: Heterogeneous soft tissue density consistent with postsurgical changes. OTHER FINDINGS: None. IMPRESSION: Status post left shoulder arthroplasty.
[2018-04-19 08:32] LABS: ALT/SGPT 40 U/L (9-52); AST/SGOT 28 U/L (14-36); BLOOD UREA NITROGEN 18 mg/dL (7-17); CALCIUM 8.4 mg/dl (8.6-10.4); GFR AFRICAN-AMERICAN > 60; GFR NON-AFRICAN AMERICAN > 60
[2018-04-19 08:41] LABS: BASO # 0.1 K/uL (0.0-0.2); BASO % 0.6 % (0.0-2.0); EOS # 0.4 K/uL (0.0-0.7); EOS % 4.1 % (0.0-4.0); HEMOGLOBIN 9.7 g/dL (11.0-16.0); LYMPH # 1.9 K/uL (1.0-4.3); LYMPH % 18.6 % (20.0-40.0); MEAN CELL VOLUME 80.1 fL (81.0-99.0); MEAN CORPUSCULAR HEMOGLOBIN 28.6 pg (27.0-31.0); MEAN CORPUSCULAR HGB CONC 35.7 g/dL (33.0-37.0); MONO # 1.2 K/uL (0.0-0.8); NEUT # 6.4 K/uL (1.8-7.0); NEUT % 64.7 % (50.0-75.0); NRBC % 0.2 % (0.0-2.0); RBC 3.39 Mil/uL (3.80-5.20)
[2018-04-19] MEDS: Multiple Vitamins Tab PO SCH (09:26)
[2018-04-19] MEDS ORDERED: Potassium Chloride 20 mEq ER Tab PO ONE (10:38)
--- NOTE | 2018-04-19 13:22 | CP.PCM.PN ---
Subjective - Date & Time of Evaluation Date of Evaluation: 04/19/18 Time of Evaluation: 13:20 - Subjective Subjective: Patient states pain is much better after the medication she just received. She says the pain was intolerable this am. Denies numbness/tingling. Denies CP/SOB. Objective - Vital Signs/Intake and Output Vital Signs (last 24 hours): Temp Pulse Resp BP Pulse Ox 98.3 F 79 20 139/72 97 04/19/18 08:57 04/19/18 08:57 04/19/18 08:57 04/19/18 08:57 04/19/18 08:57 Intake and Output: 04/19/18 04/19/18 06:59 18:59 Intake Total 260 336 Output Total 100 500 Balance 160 -164 - Medications Medications: Current Medications Acetaminophen (Tylenol 325mg Tab) 650 mg PO Q6 PRN PRN Reason: Pain, Mild (1-3) Amlodipine Besylate (Norvasc) 5 mg PO DAILY [facility] Last Admin: 04/19/18 09:26 Dose: 5 mg Hydromorphone HCl (Dilaudid) 0.5 mg IVP Q6H PRN PRN Reason: Pain, severe (8-10) Last Admin: 04/19/18 05:05 Dose: 0.5 mg Losartan Potassium (Cozaar) 50 mg PO DAILY [facility] Last Admin: 04/19/18 09:26 Dose: 50 mg Multivitamins (Hexavitamin) 1 tab PO DAILY [facility] Last Admin: 04/19/18 09:26 Dose: 1 tab Oxycodone HCl (Oxycodone Immediate Release Tab) 5 mg PO Q4H PRN PRN Reason: Pain, moderate (4-7) Promethazine HCl/Dextromethorphan (Phenergan Dm Syrup) 5 ml PO Q8H PRN PRN Reason: Cough Last Admin: 04/18/18 09:12 Dose: 5 ml Timolol Maleate (Timoptic 0.5% Ophth Soln) 1 drop OU BID [facility] Last Admin: 04/19/18 09:26 Dose: 1 drop - Labs Labs: 04/19/18 07:56 04/19/18 07:56 PT 12.3 SECONDS (9.7-12.2) H 04/17/18 19:45 INR 1.1 04/17/18 19:45 APTT 37 SECONDS (21-34) H 04/17/18 10:24 - Extremities Exam Additional comments: left shoulder:+swelling, +ROM fingers/wrist, sensation intact, +radial pulse, sling adjusted, aquacel intact Assessment and Plan (1) Closed fracture of left proximal humerus Assessment & Plan: POD#1 s/p left shoulder hemiarthroplasty orthopedically stable for rehab tomorrow plan dressing change in am maintain immobilizer limit ER to 20 degrees NWB ARTHURE PT/OT pain medication labs in am d/w Dr. Georges, agrees with above Status: Acute
--- NOTE | 2018-04-19 17:45 | CP.PCM.PN ---
Subjective - Date & Time of Evaluation Date of Evaluation: 04/19/18 Time of Evaluation: 17:30 - Subjective Subjective: -Patient feeling better, looks comfortable, shoulder less painful- -s/p shoulder surgery. had OT/PT today eval today- recommending TCU in [place] -Serum Na- 124 today- patient asymptomatic. -BUN- 18, creatinine normal Objective - Vital Signs/Intake and Output Vital Signs (last 24 hours): Temp Pulse Resp BP Pulse Ox 98.1 F 95 H 20 117/72 97 04/19/18 15:42 04/19/18 16:43 04/19/18 15:42 04/19/18 15:42 04/19/18 15:42 Intake and Output: 04/19/18 04/19/18 06:59 18:59 Intake Total 260 336 Output Total 100 500 Balance 160 -164 - Medications Medications: Current Medications Acetaminophen (Tylenol 325mg Tab) 650 mg PO Q6 PRN PRN Reason: Pain, Mild (1-3) Amlodipine Besylate (Norvasc) 5 mg PO DAILY [facility] Last Admin: 04/19/18 09:26 Dose: 5 mg Hydromorphone HCl (Dilaudid) 0.5 mg IVP Q6H PRN PRN Reason: Pain, severe (8-10) Last Admin: 04/19/18 05:05 Dose: 0.5 mg Ketorolac Tromethamine (Toradol) 15 mg IVP Q6 PRN PRN Reason: Pain, Mild (1-3) Losartan Potassium (Cozaar) 50 mg PO DAILY [facility] Last Admin: 04/19/18 09:26 Dose: 50 mg Multivitamins (Hexavitamin) 1 tab PO DAILY [facility] Last Admin: 04/19/18 09:26 Dose: 1 tab Oxycodone HCl (Oxycodone Immediate Release Tab) 5 mg PO Q4H PRN PRN Reason: Pain, moderate (4-7) Promethazine HCl/Dextromethorphan (Phenergan Dm Syrup) 5 ml PO Q8H PRN PRN Reason: Cough Last Admin: 04/18/18 09:12 Dose: 5 ml Timolol Maleate (Timoptic 0.5% Ophth Soln) 1 drop OU BID [facility] Last Admin: 04/19/18 09:26 Dose: 1 drop - Labs Labs: 04/19/18 07:56 04/19/18 07:56 PT 12.3 SECONDS (9.7-12.2) H 04/17/18 19:45 INR 1.1 04/17/18 19:45 APTT 37 SECONDS (21-34) H 04/17/18 10:24 - Constitutional Appears: No Acute Distress - Head Exam Head Exam: NORMOCEPHALIC - Eye Exam Eye Exam: Normal appearance - ENT Exam ENT Exam: Normal Exam - Neck Exam Neck Exam: Normal Inspection - Respiratory Exam Respiratory Exam: Clear to Ausculation Bilateral, NORMAL BREATHING PATTERN - Cardiovascular Exam Cardiovascular Exam: REGULAR RHYTHM, +S1, +S2 - GI/Abdominal Exam GI & Abdominal Exam: Soft, Normal Bowel Sounds - Extremities Exam Additional comments: S/P left shoulder surgery. L shoulder swollen and tender - Neurological Exam Neurological Exam: Alert, Oriented x3 - Psychiatric Exam Psychiatric exam: Normal Affect, Normal Mood - Skin Skin Exam: Dry, Intact, Normal Color, Warm Assessment and Plan (1) Hyponatremia Assessment & Plan: Na- 124 again with BUN 18 slightly high Will restart back on NS. Will repeat bmp tomorrow. Status: Acute (2) Closed fracture of left proximal humerus Assessment & Plan: tolerated surgery well. L soulder swollen but less painful. arrangments beig made to go to [facility]. Status: Acute (3) Acute prerenal azotemia Assessment & Plan: BUN- 18- slightly high again Status: Resolved (4) Hypertension Assessment & Plan: controlled Status: Chronic
[2018-04-19] MEDS ORDERED: Sodium Chloride 0.9% 1,000 ML IV SCH (18:00)
[2018-04-19] MEDS: oxyCODONE 5 mg Immediate Release Tab PO PRN ×2 (18:34→22:42)
--- NOTE | 2018-04-19 20:35 | CP.PCM.PN ---
Subjective - Date & Time of Evaluation Date of Evaluation: 04/19/18 Time of Evaluation: 20:34 - Subjective Subjective: pt is seen and examined, follow up consult is dictated # Objective - Vital Signs/Intake and Output Vital Signs (last 24 hours): Temp Pulse Resp BP Pulse Ox 98.1 F 95 H 20 117/72 97 04/19/18 15:42 04/19/18 16:43 04/19/18 15:42 04/19/18 15:42 04/19/18 15:42 Intake and Output: 04/19/18 04/20/18 18:59 06:59 Intake Total 336 Output Total 500 Balance -164 - Medications Medications: Current Medications Acetaminophen (Tylenol 325mg Tab) 650 mg PO Q6 PRN PRN Reason: Pain, Mild (1-3) Amlodipine Besylate (Norvasc) 5 mg PO DAILY [facility] Last Admin: 04/19/18 09:26 Dose: 5 mg Hydromorphone HCl (Dilaudid) 0.5 mg IVP Q6H PRN PRN Reason: Pain, severe (8-10) Last Admin: 04/19/18 05:05 Dose: 0.5 mg Sodium Chloride (Sodium Chloride 0.9%) 1,000 mls @ 50 mls/hr IV .Q20H [facility] Last Admin: 04/19/18 18:27 Dose: 50 mls/hr Ketorolac Tromethamine (Toradol) 15 mg IVP Q6 PRN PRN Reason: Pain, Mild (1-3) Losartan Potassium (Cozaar) 50 mg PO DAILY [facility] Last Admin: 04/19/18 09:26 Dose: 50 mg Multivitamins (Hexavitamin) 1 tab PO DAILY [facility] Last Admin: 04/19/18 09:26 Dose: 1 tab Oxycodone HCl (Oxycodone Immediate Release Tab) 5 mg PO Q4H PRN PRN Reason: Pain, moderate (4-7) Last Admin: 04/19/18 18:34 Dose: 5 mg Promethazine HCl/Dextromethorphan (Phenergan Dm Syrup) 5 ml PO Q8H PRN PRN Reason: Cough Last Admin: 04/18/18 09:12 Dose: 5 ml Timolol Maleate (Timoptic 0.5% Ophth Soln) 1 drop OU BID [facility] Last Admin: 04/19/18 18:27 Dose: 1 drop - Labs Labs: 04/19/18 07:56 04/19/18 07:56 PT 12.3 SECONDS (9.7-12.2) H 04/17/18 19:45 INR 1.1 04/17/18 19:45 APTT 37 SECONDS (21-34) H 04/17/18 10:24
[2018-04-20] MEDS: oxyCODONE 5 mg Immediate Release Tab PO PRN ×2 (06:41→14:00)
--- NOTE | 2018-04-20 06:58 | PN ---
Copied To: Pauline Larson MD Attending MD: Pauline Larson MD DATE: 04/19/2018 The patient is located in room 667. Requested by Ammy Patino MD REASON FOR FOLLOWUP Hyponatremia. SUBJECTIVE: Mrs. Guido is a 68-year-old elderly [place] female with a past medical history significant for longstanding hypertension and status post fall in the house and injury to the left shoulder, found to have a fracture of the left humerus and also severe hyponatremia. Serum sodium 111. Also increased BUN and creatinine, acute renal failure. The patient was started on IV fluids and serum sodium improved gradually to 131. The patient underwent surgery yesterday. This morning, the patient was complaining of pain in the left arm and now sodium is 124. The patient denies any nausea, vomiting, diarrhea. No abdominal pain. No abdominal pain. No chest pain. No palpitation. No nausea, vomiting and no edema of the legs. PHYSICAL EXAMINATION: VITAL SIGNS: As follows: Blood pressure this afternoon 117/72, pulse 89, respirations 20, temperature 98.1, saturation 97%. Height 4 feet 11 inches, weight is 105 pounds. GENERAL: Mrs. Guido is a 68-year-old elderly female, moderately built, moderately nourished, not in distress. HEENT: Pupils normal and reactive to light and accommodation. Conjunctivae pink. Sclerae anicteric. Tongue is moist. Trachea is midline. LUNGS: Symmetric on both sides. Bilateral breath sounds present. Clear to auscultation. CVS: Taylor at the fifth intercostal space, midclavicular area. S1 and S2 audible. No murmur or gallop. ABDOMEN: Normal in appearance, soft, tympanic. No guarding. No hepatosplenomegaly. CUSTOMER RELATIONS ADVISOR: The patient is alert, awake, oriented x3. Nonfocal neuro examination. Cranial nerves II-XII grossly intact. Sensory and motor system is within normal limits. EXTREMITIES: No cyanosis, no clubbing, no edema. The patient has had surgery to the left humerus, status post left shoulder hemiarthroplasty for left proximal humerus fracture. CURRENT MEDICATIONS: Include as follows: Losartan 50 mg p.o. daily, Dilaudid mg IV every 6 hours, multivitamin 1 tablet daily, Norvasc 5 mg daily, oxycodone 5 mg p.o. every 4 hours p.r.n., Phenergan DM 5 mL p.o. every 8 hours p.r.n., eyedrops, Toradol, Tylenol, normal saline IV fluids 0.9 at 50 mL/hour. LABORATORY DATA: Includes as follows: As of 04/19/2018, WBC 10, hemoglobin 9.7, hematocrit is 27.2, platelets 396. Sodium 124, potassium 3.4, chloride 92, CO2 of 27, BUN 18, creatinine 0.5, glucose 104, calcium 8.4. Total bili 1.0, AST 28, ALT 40, alkaline phosphatase 118, total protein 5.8, albumin is 3.0. In summary, Mrs. Guido is a 68-year-old elderly female with a history of hypertension, status post fall, hyponatremia, fracture of the left of the humerus proximal, and status post left hemiarthroplasty on 04/18/2018, with pain, again serum sodium dropped from 131 to 124. 1. Hyponatremia most likely secondary to SIADH secondary to pain. Cannot rule out a prerenal, less likely. 2. Hypertension. Blood pressure is stable. Continue her current medications, losartan and amlodipine. 3. Status post left hemiarthroplasty. Continue analgesics as needed. We will check again urine sodium. Pauline Larson MD
--- NOTE | 2018-04-20 06:58 | CP.PCM.PN ---
Subjective - Date & Time of Evaluation Date of Evaluation: 04/20/18 Time of Evaluation: 06:53 - Subjective Subjective: Patient seen and examined. She states the pain is controlled. She denies any numbness/ tingling. Shoulder immobilizer on VSS L shoulder: dressing removed. Incision clean and intact with sutures in place. + swelling. No erythema or drainage. Incision cleaned and light dry dressings applied. Sensation intact to light touch. +AROM wrist and fingers. Neurovascularly she is intact distally POD#2 s/p L shoulder hemiarthroplasty Rehab today Maintain shoulder immobilizer Limit ER to 20 degrees Cont PT Cont pain control Will follow up in Dr. Georges's office Objective - Vital Signs/Intake and Output Vital Signs (last 24 hours): Temp Pulse Resp BP Pulse Ox 98.2 F 90 20 111/73 97 04/20/18 04:25 04/20/18 04:25 04/20/18 04:25 04/20/18 04:25 04/20/18 04:25 Intake and Output: 04/19/18 04/20/18 18:59 06:59 Intake Total 336 400 Output Total 500 70 Balance -164 330 - Medications Medications: Current Medications Acetaminophen (Tylenol 325mg Tab) 650 mg PO Q6 PRN PRN Reason: Pain, Mild (1-3) Amlodipine Besylate (Norvasc) 5 mg PO DAILY [facility] Last Admin: 04/19/18 09:26 Dose: 5 mg Hydromorphone HCl (Dilaudid) 0.5 mg IVP Q6H PRN PRN Reason: Pain, severe (8-10) Last Admin: 04/19/18 05:05 Dose: 0.5 mg Sodium Chloride (Sodium Chloride 0.9%) 1,000 mls @ 50 mls/hr IV .Q20H [facility] Last Admin: 04/19/18 18:27 Dose: 50 mls/hr Ketorolac Tromethamine (Toradol) 15 mg IVP Q6 PRN PRN Reason: Pain, Mild (1-3) Losartan Potassium (Cozaar) 50 mg PO DAILY [facility] Last Admin: 04/19/18 09:26 Dose: 50 mg Multivitamins (Hexavitamin) 1 tab PO DAILY [facility] Last Admin: 04/19/18 09:26 Dose: 1 tab Oxycodone HCl (Oxycodone Immediate Release Tab) 5 mg PO Q4H PRN PRN Reason: Pain, moderate (4-7) Last Admin: 04/20/18 06:41 Dose: 5 mg Promethazine HCl/Dextromethorphan (Phenergan Dm Syrup) 5 ml PO Q8H PRN PRN Reason: Cough Last Admin: 04/18/18 09:12 Dose: 5 ml Timolol Maleate (Timoptic 0.5% Ophth Soln) 1 drop OU BID [facility] Last Admin: 04/19/18 18:27 Dose: 1 drop - Labs Labs: 04/19/18 07:56 04/19/18 07:56 PT 12.3 SECONDS (9.7-12.2) H 04/17/18 19:45 INR 1.1 04/17/18 19:45 APTT 37 SECONDS (21-34) H 04/17/18 10:24
[2018-04-20 08:04] LABS: HEMOGLOBIN 8.7 g/dL (11.0-16.0); MEAN CELL VOLUME 80.2 fL (81.0-99.0); MEAN CORPUSCULAR HEMOGLOBIN 27.3 pg (27.0-31.0); MEAN CORPUSCULAR HGB CONC 34.1 g/dL (33.0-37.0); MEAN PLATELET VOLUME 6.4 fL (7.2-11.7); RBC 3.18 Mil/uL (3.80-5.20); WHITE BLOOD COUNT 11.7 K/uL (4.8-10.8)
[2018-04-20 08:19] LABS: ALB/GLOB RATIO 1.1 (1.0-2.1); ALT/SGPT 33 U/L (9-52); AST/SGOT 23 U/L (14-36); BLOOD UREA NITROGEN 19 mg/dL (7-17); CALCIUM 8.4 mg/dl (8.6-10.4); GFR AFRICAN-AMERICAN > 60; GFR NON-AFRICAN AMERICAN > 60; URIC ACID 2.2 mg/dL (2.2-7.5)
[2018-04-20 09:06] LABS: OSMOLALITY,URINE 634 mosm/kg (300-1000)
[2018-04-20] MEDS: Multiple Vitamins Tab PO SCH (09:07)
--- NOTE | 2018-04-20 13:56 | CP.PCM.DIS ---
Provider - Provider Date of Admission: 04/12/18 20:02 Attending physician: Ammy Oneal MD Primary care physician: Jacques Oneal Consults: Dr. Marinelli, Dr. Srikanth Larson Time Spent in preparation of Discharge (in minutes): 45 Diagnosis - Discharge Diagnosis (1) Hyponatremia Status: Acute Priority: High (2) Closed fracture of left proximal humerus Status: Acute Priority: Medium (3) Acute prerenal azotemia Status: Resolved (4) Hypertension Status: Chronic Priority: Medium Hospital Course - Lab Results Lab Results: Micro Results 04/16/18 20:44 Urine,Catheterized Urine Culture - Final No Growth (<1,000 CFU/ML) 04/13/18 21:23 Urine,Catheterized Urine Culture - Final No Growth (<1,000 CFU/ML) Most Recent Lab Values WBC 11.7 K/uL (4.8-10.8) H 04/20/18 07:53 RBC 3.18 Mil/uL (3.80-5.20) L 04/20/18 07:53 Hgb 8.7 g/dL (11.0-16.0) L 04/20/18 07:53 Hct 25.5 % (34.0-47.0) L 04/20/18 07:53 MCV 80.2 fL (81.0-99.0) L 04/20/18 07:53 MCH 27.3 pg (27.0-31.0) 04/20/18 07:53 MCHC 34.1 g/dL (33.0-37.0) 04/20/18 07:53 RDW 14.0 % (11.5-14.5) 04/20/18 07:53 Plt Count 383 K/uL (130-400) 04/20/18 07:53 MPV 6.4 fL (7.2-11.7) L 04/20/18 07:53 Neut % (Auto) 64.7 % (50.0-75.0) 04/19/18 07:56 Lymph % (Auto) 18.6 % (20.0-40.0) L 04/19/18 07:56 [place] % (Auto) 12.0 % (0.0-10.0) H 04/19/18 07:56 Eos % (Auto) 4.1 % (0.0-4.0) H 04/19/18 07:56 Baso % (Auto) 0.6 % (0.0-2.0) 04/19/18 07:56 Neut # (Auto) 6.4 K/uL (1.8-7.0) 04/19/18 07:56 Lymph # (Auto) 1.9 K/uL (1.0-4.3) 04/19/18 07:56 [place] # (Auto) 1.2 K/uL (0.0-0.8) H 04/19/18 07:56 Eos # (Auto) 0.4 K/uL (0.0-0.7) 04/19/18 07:56 Baso # (Auto) 0.1 K/uL (0.0-0.2) 04/19/18 07:56 Neutrophils % (Manual) 79 % (50-75) H 04/13/18 08:24 Band Neutrophils % 2 % (0-2) 04/13/18 08:24 Lymphocytes % (Manual) 6 % (20-40) L 04/13/18 08:24 Monocytes % (Manual) 13 % (0-10) H 04/13/18 08:24 Platelet Estimate Normal (NORMAL) 04/13/18 08:24 Polychromasia Slight 04/13/18 08:24 Hypochromasia (manual) Slight 04/13/18 08:24 PT 12.3 SECONDS (9.7-12.2) H 04/17/18 19:45 INR 1.1 04/17/18 19:45 APTT 37 SECONDS (21-34) H 04/17/18 10:24 Sodium 126 mmol/L (132-148) L 04/20/18 07:53 Potassium 3.9 mmol/L (3.6-5.2) 04/20/18 07:53 Chloride 92 mmol/L (98-107) L 04/20/18 07:53 Carbon Dioxide 27 mmol/L (22-30) 04/20/18 07:53 Anion Gap 11 (10-20) 04/20/18 07:53 BUN 19 mg/dL (7-17) H 04/20/18 07:53 Creatinine 0.6 mg/dL (0.7-1.2) L 04/20/18 07:53 Est GFR ( Amer) > 60 04/20/18 07:53 Est GFR (Non-Af Amer) > 60 04/20/18 07:53 Random Glucose 100 mg/dL (65-105) 04/20/18 07:53 Serum Osmolality 269 mosm/kg (272-300) L 04/20/18 07:53 Uric Acid 2.2 mg/dL (2.2-7.5) 04/20/18 07:53 Calcium 8.4 mg/dl (8.6-10.4) L 04/20/18 07:53 Iron 54 ug/dL (37-170) 04/15/18 07:53 TIBC 287 ug/dL (250-450) 04/15/18 07:53 % Saturation 19 (20-55) L 04/15/18 07:53 Ferritin 115.0 ng/mL 04/15/18 07:53 Total Bilirubin 1.0 mg/dL (0.2-1.3) 04/20/18 07:53 AST 23 U/L (14-36) 04/20/18 07:53 ALT 33 U/L (9-52) 04/20/18 07:53 Alkaline Phosphatase 125 U/L (38-126) 04/20/18 07:53 Total Protein 5.8 g/dL (6.3-8.3) L 04/20/18 07:53 Albumin 3.0 g/dL (3.5-5.0) L 04/20/18 07:53 Globulin 2.8 gm/dL (2.2-3.9) 04/20/18 07:53 Albumin/Globulin Ratio 1.1 (1.0-2.1) 04/20/18 07:53 Vitamin B12 > 1000 pg/mL (239-931) H 04/15/18 07:53 25-OH Vitamin D Total 34.0 NG/ML (30.0-100.0) 04/14/18 07:21 TSH 3rd Generation 1.23 mIU/L (0.46-4.68) 04/13/18 08:24 Cortisol AM Sample 21.9 ug/dL (4.46-22.7) 04/13/18 08:24 Urine Color Yellow (YELLOW) 04/13/18 13:36 Urine Clarity Hazy (Clear) 04/13/18 13:36 Urine pH 6.0 (5.0-8.0) 04/13/18 13:36 Ur Specific [place] 1.017 (1.003-1.030) 04/13/18 13:36 Urine Protein 1+ mg/dL (NEGATIVE) H 04/13/18 13:36 Urine Glucose (UA) 2+ mg/dL (Normal) H 04/13/18 13:36 Urine Ketones Trace mg/dL (NEGATIVE) 04/13/18 13:36 Urine Blood Negative (NEGATIVE) 04/13/18 13:36 Urine Nitrate Negative (NEGATIVE) 04/13/18 13:36 Urine Bilirubin Negative (NEGATIVE) 04/13/18 13:36 Urine Urobilinogen 2.0 mg/dL (0.2-1.0) H 04/13/18 13:36 Ur Leukocyte Esterase 1+ Maninder/uL (Negative) H 04/13/18 13:36 Urine WBC (Auto) 30 /hpf (0-5) H 04/13/18 13:36 Urine RBC (Auto) 1 /hpf (0-3) 04/13/18 13:36 Ur Squamous Epith Cells 3 /hpf (0-5) 04/13/18 13:36 Urine Bacteria Rare (<OCC) 04/13/18 13:36 Hyaline Casts 0-2 /lpf (0-2) 04/12/18 21:23 Urine Osmolality 634 mosm/kg (300-1000) 04/20/18 07:52 Ur Random Sodium 19 mmol/L 04/20/18 07:52 Ur Random Potassium 36.3 mmol/L 04/13/18 13:30 Urine Chloride 17 mmol/L (32-290) L 04/13/18 13:36 Stool Occult Blood Negative (NEGATIVE) 04/13/18 14:34 Blood Type B POSITIVE 04/17/18 10:24 Blood Type Confirm B POSITIVE 04/17/18 10:24 Antibody Screen Negative 04/17/18 10:24 - Hospital Course Hospital Course: This is a 68y/o female with history of hypertension who fell down at home sustaining fracture of the L shoulder. She was noted to be markedly hyponatremic with serum Na of 111 on admission. Orthopedic and Nephrology consultation were obtained. Serum Na was partially corrected with NS infusion and patient eventually underwent surgery for the fractured humerus a few days later. She tolerated the procedure well and is now able to move around with assistance. She will be discharged to the TCU. Her serum Na has again dropped down to 125. Will advise to follow up and continue correction of serum Na at the TCU if ok's by psychodramatist. Discharge Exam - Head Exam Head Exam: NORMOCEPHALIC - Eye Exam Eye Exam: Normal appearance - ENT Exam ENT Exam: Normal Exam - Neck Exam Neck exam: Normal Inspection - Respiratory Exam Respiratory Exam: Clear to PA & Lateral, NORMAL BREATHING PATTERN - Cardiovascular Exam Cardiovascular Exam: REGULAR RHYTHM, +S1, +S2 - GI/Abdominal Exam GI & Abdominal Exam: Normal Bowel Sounds, Soft, Unremarkable - Extremities Exam Additional comments: L shoulder s/p arthroplasty, swollen and tender - Neurological Exam Neurological exam: Alert, CN II-XII Intact, Oriented x3, Reflexes Normal Discharge Plan - Follow Up Plan Condition: GUARDED Disposition: REHAB FACILITY/REHAB UNIT Instructions: Hyponatremia (DC), Shoulder Fracture (DC), Hypertension (DC) Referrals: Sergei Georges MD [Staff Provider] - Ammy Oneal MD [Staff Provider] - Pauline Larson MD [Staff Provider] -
[2018-04-20 16:20] VITALS: BP 107/68; TEMP 98.2; O2SAT 96
[2018-04-20 16:23] VITALS: PULSE 87
--- NOTE | 2018-04-20 17:16 | CP.PCM.PN ---
Subjective - Date & Time of Evaluation Date of Evaluation: 04/20/18 Time of Evaluation: 17:15 - Subjective Subjective: pt is seen and examined, follow up consult is dictated #[id number] Objective - Vital Signs/Intake and Output Vital Signs (last 24 hours): Temp Pulse Resp BP Pulse Ox 98.2 F 87 20 107/68 96 04/20/18 15:00 04/20/18 16:18 04/20/18 15:00 04/20/18 15:00 04/20/18 15:00 Intake and Output: 04/20/18 04/20/18 06:59 18:59 Intake Total 400 Output Total 70 Balance 330 - Medications Medications: Current Medications Acetaminophen (Tylenol 325mg Tab) 650 mg PO Q6 PRN PRN Reason: Pain, Mild (1-3) Amlodipine Besylate (Norvasc) 5 mg PO DAILY [facility] Last Admin: 04/20/18 09:07 Dose: 5 mg Hydromorphone HCl (Dilaudid) 0.5 mg IVP Q6H PRN PRN Reason: Pain, severe (8-10) Last Admin: 04/19/18 05:05 Dose: 0.5 mg Sodium Chloride (Sodium Chloride 0.9%) 1,000 mls @ 50 mls/hr IV .Q20H [facility] Last Admin: 04/19/18 18:27 Dose: 50 mls/hr Ketorolac Tromethamine (Toradol) 15 mg IVP Q6 PRN PRN Reason: Pain, Mild (1-3) Last Admin: 04/20/18 09:06 Dose: 15 mg Losartan Potassium (Cozaar) 50 mg PO DAILY [facility] Last Admin: 04/20/18 09:07 Dose: 50 mg Multivitamins (Hexavitamin) 1 tab PO DAILY [facility] Last Admin: 04/20/18 09:07 Dose: 1 tab Oxycodone HCl (Oxycodone Immediate Release Tab) 5 mg PO Q4H PRN PRN Reason: Pain, moderate (4-7) Last Admin: 04/20/18 14:00 Dose: 5 mg Promethazine HCl/Dextromethorphan (Phenergan Dm Syrup) 5 ml PO Q8H PRN PRN Reason: Cough Last Admin: 04/18/18 09:12 Dose: 5 ml Timolol Maleate (Timoptic 0.5% Ophth Soln) 1 drop OU BID KATHY Last Admin: 04/20/18 09:07 Dose: 1 drop - Labs Labs: 04/20/18 07:53 04/20/18 07:53 PT 12.3 SECONDS (9.7-12.2) H 04/17/18 19:45 INR 1.1 04/17/18 19:45 APTT 37 SECONDS (21-34) H 04/17/18 10:24
--- NOTE | 2018-04-21 03:16 | PN ---
Copied To: Pauline Larson MD Attending MD: Pauline Larson MD DATE: 04/20/2018 FOLLOWUP RENAL CONSULTATION LOCATION: The patient is located in room 667, bed B. REQUESTED BY: Ammy Patino MD REASON FOR FOLLOWUP: Hyponatremia, fracture of the left humerus. SUBJECTIVE: Mrs. Guido is a 68-year-old elderly [place] female with a history of hypertension, status post fall with a fracture of the proximal left humerus, status post left hemiarthroplasty on Tuesday, that is 04/18/2018. The patient is feeling better, not in acute distress. Denies any headache or dizziness. Denies any chest pain or palpitation. Denies any fever or cough. No abdominal pain. No nausea, vomiting, or diarrhea. PHYSICAL EXAMINATION: VITAL SIGNS: As follows: Blood pressure 107/68, pulse 93, respirations 20, temperature 98.2, saturation 96%. Height 4 feet 11 inches. Weight is 105 pounds. HEENT: Pupils are normal and reactive to light and accommodation. Conjunctivae are pink. Sclerae are anicteric. Tongue is moist. Trachea is midline. LUNGS: Symmetric on both sides. Bilateral breath sounds present. Clear to auscultation. CVS: Fisher at the fifth intercostal space, midclavicular line. S1, S2 audible. No murmur or gallop. ABDOMEN: Normal in appearance. Soft, tympanitic. No guarding. No rigidity. No hepatosplenomegaly. PENCIL MAKER: The patient is alert, awake, oriented x3. Nonfocal neuro examination. Cranial nerves II-XII grossly intact. Sensory and motor system is within normal limits. EXTREMITIES: No cyanosis, no clubbing, no edema. The patient has a dressing to the left shoulder. CURRENT MEDICATIONS: Include losartan 50 mg p.o. daily, Lovenox 40 mg subcu daily, amlodipine 5 mg daily, IV fluids normal saline at 50 mL per hour, multivitamin one tablet daily, and Tylenol. LABORATORY DATA: Include as follows as of 04/20/2018: WBC 11.7, hemoglobin 8.7, hematocrit is 25.5, platelets 383. Sodium 126, potassium 3.9, chloride 92, CO2 of 27, BUN 19, creatinine 0.6, glucose 100, serum osmolality 269, uric acid is 2.2, and calcium is 8.4. Total bili 1, AST 23, ALT 33, alkaline phosphatase 125, total protein 5.8, albumin is 3. ASSESSMENT AND PLAN: In summary, Mrs. Guido is a 68-year-old elderly female with hypertension, status post fall twice in the house and also sustained injury to the left shoulder and found to have a fracture of the left proximal humerus and also hyponatremia, status post left hemiarthroplasty. Hyponatremia, most likely secondary to intravascular depletion secondary to decreased p.o. intake and n.p.o., cannot rule out syndrome of inappropriate secretion of antidiuretic hormone secondary to recent surgery and pain. Serum sodium increased from 124 to 126 today. Continue gentle hydration. If serum sodium continued to drop, we will discontinue intravenous fluids and we will consider tolvaptan, we will hold tolvaptan today. Follow up BMP in a.m. Continue physical therapy evaluation and physical therapy. We will follow with you. Thank you for allowing me to participate in your patient's care. Pauline Larson MD
== END 2018-04-20 17:45 | DRG 483 ==
LOC: C.ER 18:40 → C.9E 20:02 → C.5S 22:45 → C.6T 04-18 20:29
PROVIDERS: ADMIT Internal Medicine Cardiovascular Disease; ATTEND Internal Medicine Cardiovascular Disease
PROC: 0JCF0ZZ Extirpation of Matter from Left Upper Arm Subcutaneous Tissue and Fascia, Open Approach (ICD-10-PCS; 2018-04-18)
PROC: 0RRK0J6 Replacement of Left Shoulder Joint with Synthetic Substitute, Humeral Surface, Open Approach (ICD-10-PCS; principal; 2018-04-18 15:00)
DX: S42.292A Other displaced fracture of upper end of left humerus, initial encounter for closed fracture (principal); E87.1 Hypo-osmolality and hyponatremia; N17.9 Acute kidney failure, unspecified; S46.122A Laceration of muscle, fascia and tendon of long head of biceps, left arm, initial encounter; E86.0 Dehydration; E87.6 Hypokalemia; I10 Essential (primary) hypertension; I95.9 Hypotension, unspecified; M81.0 Age-related osteoporosis without current pathological fracture; N28.1 Cyst of kidney, acquired; T50.2X5A Adverse effect of carbonic-anhydrase inhibitors, benzothiadiazides and other diuretics, initial encounter; E03.9 Hypothyroidism, unspecified; K82.9 Disease of gallbladder, unspecified; H40.9 Unspecified glaucoma; W10.9XXA Fall (on) (from) unspecified stairs and steps, initial encounter; Y92.009 Unspecified place in unspecified non-institutional (private) residence as the place of occurrence of the external cause